=== PATIENT | male | born 1960 | race African-American/Black ===

== ENCOUNTER 2019-12-19 07:10 | Inpatient (IN) | payer MEDICARE ==
[2019-12-19 07:39] LABS: #Eosinphils 0.3 thou/uL (0.0-0.7); #Lymphocytes 1.2 thou/uL (1.20-3.40); #Monocytes 0.4 thou/uL (0.11-0.59); #Neutrophils 5.4 thou/uL (1.40-6.50); %Basophils 0.4 % (0.0-1.0); %Eosinophils 4.6 % (0.0-10.0); %Lymphocytes 16.3 % (21.0-51.0); %Monocytes 5.7 % (0.0-10.0); %Neutrophils 72.9 % (42.0-75.0); Hemoglobin 12.8 g/dL (14.0-18.0); Mean Corpuscular HGB CONC 34.6 g/dL (32.0-36.0); Mean Corpuscular Hemoglobin 31.2 pg (27.0-31.0); Mean Platelet Volume 7.2 fL (7.4-10.4); Platelet Count 231 thou/uL (130-400); RBC Distribution Width 13.2 % (11.5-14.5); Red Blood Cell (RBC) Count 4.12 mill/uL (4.70-6.10); White Blood Cell (WBC) Count 7.4 thou/uL (4.8-10.8)
[2019-12-19] MEDS ORDERED: Amlodipine 5 MG TAB ONE (07:55)
[2019-12-19 08:06] LABS: ALT (SGPT) 14 U/L (8-55); AST (SGOT) 17 U/L (5-34); Albumin 3.4 g/dL (3.5-5.0); Alkaline Phosphatase 126 U/L (40-110); Anion Gap 9 mmol/L (10-20); BUN (Urea Nitrogen) 21 mg/dL (8.4-25.7); Bilirubin, Total 0.8 mg/dL (0.2-1.2); CK (CPK) 376 U/L (30-200); Calc. Creatinine Clearance 0 mL/min (70-130); Calcium 8.9 mg/dL (7.8-10.44); Carbon Dioxide 32 mmol/L (22-29); Chloride 101 mmol/L (98-107); Estimated GFR-MDRD 65; Globulin 3.8 g/dL (2.4-3.5); Glucose 295 mg/dL (70-105); Potassium 3.8 mmol/L (3.5-5.1); Protein, Total 7.2 g/dL (6.0-8.3); Sodium 138 mmol/L (136-145)
--- NOTE | 2019-12-19 08:08 | RAD ---
CHEST 1 VIEW: Date: 12/19/2019 INDICATION: History of stroke symptoms and altered mental status. COMPARISON: None. FINDINGS: Lungs are clear. Heart size is mildly prominent. No pleural effusion or pneumothorax is evident. No a cute osseous abnormality is evident. IMPRESSION: Mild cardiomegaly without evidence of cardiac decompensation. POS: [facility]
[2019-12-19] MEDS ORDERED: Losartan 25 MG TAB PO SCH (08:30)
[2019-12-19] MEDS ORDERED: Hydrochlorothiazide 25 MG TAB PO SCH (08:30)
--- NOTE | 2019-12-19 09:52 | PDOC.FPRHP ---
- History of Present Illness Chief Complaint: Slurred Speech / RLE Weakness History of Present Illness: Mr. Baird is a 59 y/o male with a PMH significant for "2 or 3 strokes", the most recent of which occurred in 2016, as well as HTN, Hx of Seizure, HLD and DM2 who presents to the ED with his from an outside hospital for evaluation of a possible CVA. Patient had pronounced dysarthria during the evaluation, and much of the HPI and ROS was provided by his , who was present upon evaluation. Per the patient's , the patient has residual symptoms of dysarthria and generalized weakness following his most recent CVA in 2015. However, since 12/16/2019, the patient's has noticed an increase in these symptoms, to now include pronounced right-sided LE weakness and left-sided facial drooping. The patient and his presented to an outside hospital earlier in the day, where the patient received a CT Brain that was read as "negative", and were subsequently "told to come to [facility] for an MRI". The patient denied any recent seizures, toxic exposures, LOC, traumatic falls or blows to the head, changes in vision, CP, SOB or loss of bowel or bladder function. ED Course: While in the ED, the patient received a CXR that demonstrated mild cardiomegaly , and was found to have Hypertensive Urgency, with a 198/100. He was subsequently administered ASA 81 mg, HCTZ 25 mg, Amlodipine 10 mg and Losartan 100 mg. - Allergies/Adverse Reactions Allergies Allergy/AdvReac Type Severity Reaction Status Date / Time No Known Drug Allergies Allergy Verified 12/19/19 08:16 - Home Medications Comments: The patient was not able to full articulate his current medications, and the patient's did not have a list of his medications readily available. As such. the patient's home medication list was obtained by the ED nursing staff, who called the patient's previously established pharmacy. - History PMHx: Multiple CVAs, DM2, Hypothyroidism, HTN, HLD PSHx: None FHx: Father (CVA, HTN) Social: Denied x3 Code: Full - Review of Systems General: denies: fever/chills, weight/appetite/sleep changes, night sweats Eyes: denies: eye pain, vision changes ENT: denies: nasal congestion, rhinorrhea Respiratory: reports: cough, congestion. denies: shortness of breath Cardiovascular: denies: chest pain, palpitation, edema Gastrointestinal: denies: nausea, vomiting, diarrhea, constipation, abdominal pain Genitourinary: denies: incontinence, dysuria, polyuria Skin: denies: rashes, lesions, jaundice Musculoskeletal: reports: pain (Neck). denies: tenderness, stiffness Neurological: reports: weakness. denies: numbness, syncope, seizure Psychological: denies: anxiety, depression - Vital signs BP: 198/100 HR: 73 RR: 16 Pox: 98% (Room Air) Wt: 82kg - Physical Exam Constitutional: NAD, awake, alert and oriented, well developed HEENT: normocephalic and atraumatic, PERRLA, EOMI, conjunctiva clear, no scleral icterus, grossly normal vision, grossly normal hearing, normal nasal mucosa, MMM, oropharynx clear, other (Peripheral Vision Intact) Neck: supple, FROM, trachea midline, no LAD, no bruits Chest: no-tender to palpation, no lesions Heart: RRR, normal S1/S2, no murmurs/rubs/gallops, pulses present, no edema Lungs: CTAB, no respiratory distress, good air movement, no rales/rhonchi, no wheezing, no retractions Abdomen: soft, non-tender, bowel sounds present, no masses/distention, no hernias Musculoskeletal: normal structure Neurological: other ((+) Dysdiadokinesia, (+) Finger to Nose, (-) Heel to Perla) Skin: no rash/lesions, no jaundice Heme/Lymphatic: no unusual bruising or bleeding, no purpura, no petechia, no LAD Psychiatric: normal mood and affect FMR H&P: Results - Labs Result Diagrams: 12/19/19 07:31 12/19/19 07:31 Lab results: WBC 7.4 thou/uL (4.8-10.8) 12/19/19 07:31 Hgb 12.8 g/dL (14.0-18.0) L 12/19/19 07:31 Hct 37.1 % (42.0-52.0) L 12/19/19 07:31 MCV 90.0 fL (78.0-98.0) 12/19/19 07:31 Plt Count 231 thou/uL (130-400) 12/19/19 07:31 Neutrophils % 72.9 % (42.0-75.0) 12/19/19 07:31 Sodium 138 mmol/L (136-145) 12/19/19 07:31 Potassium 3.8 mmol/L (3.5-5.1) 12/19/19 07:31 Chloride 101 mmol/L (98-107) 12/19/19 07:31 Carbon Dioxide 32 mmol/L (22-29) H 12/19/19 07:31 BUN 21 mg/dL (8.4-25.7) 12/19/19 07:31 Creatinine 1.36 mg/dL (0.7-1.3) H 12/19/19 07:31 Glucose 295 mg/dL (70-105) H 12/19/19 07:31 Calcium 8.9 mg/dL (7.8-10.44) 12/19/19 07:31 Total Bilirubin 0.8 mg/dL (0.2-1.2) 12/19/19 07:31 AST 17 U/L (5-34) 12/19/19 07:31 ALT 14 U/L (8-55) 12/19/19 07:31 Alkaline Phosphatase 126 U/L (40-110) H 12/19/19 07:31 Creatine Kinase 376 U/L (30-200) H 12/19/19 07:31 Serum Total Protein 7.2 g/dL (6.0-8.3) 12/19/19 07:31 Albumin 3.4 g/dL (3.5-5.0) L 12/19/19 07:31 FMR H&P: A/P - Problem List (1) TIA (transient ischemic attack) Current Visit: Yes Status: Acute Code(s): G45.9 - TRANSIENT CEREBRAL ISCHEMIC ATTACK, UNSPECIFIED (2) Hypertensive urgency Current Visit: Yes Status: Acute Code(s): I16.0 - HYPERTENSIVE URGENCY (3) HLD (hyperlipidemia) Current Visit: Yes Status: Acute Code(s): E78.5 - HYPERLIPIDEMIA, UNSPECIFIED (4) DM2 (diabetes mellitus, type 2) Current Visit: Yes Status: Acute (5) History of CVA (cerebrovascular accident) Current Visit: Yes Status: Acute Code(s): Z86.73 - PRSNL HX OF TIA (TIA), AND CEREB INFRC W/O RESID DEFICITS (6) Hypothyroidism Current Visit: Yes Status: Acute Code(s): E03.9 - HYPOTHYROIDISM, UNSPECIFIED - Plan Patient is a 59 y/o male with a PMH significant for multiple CVAs who presents to the ED from an outside hospital following 4 days of worsening dysarthria, right-sided LE weakness and left-sided facial drooping. 1. TIA vs. CVA -Patient's constellation of symptoms and PMH are suspicious for TIA vs. CVA -Patient's CC and account from do not appear consistent with physical exam - only positive symptoms included Dysarthria, Dysdiadokinesia and [id number] , although patient is still greatly altered from baseline (per patient's ) -NIHSS: 6 -EKG: RBBB and LAFB -Trops: Negative -CT Brain: NAF - Will need to request records from outside hospital -MRI (Brain): Pending -TTE: Pending -CTA (Head/Neck): Pending -Q4H Neuro Checks -Neuro Consult: Pending 2. Hypertensive Urgency -BP: 198/100 in ED -Patient is outside window for Permissive Hypertension -Will restart home medication regimen -Hydralazine 10 mg PO Q4H > 160/100 mmHg 3. DM2 -Blood Glucose: 295 in ED -Will restart home medication regimen -Moderate SSI -Accuchecks Q12H -Hypoglycemia Protocol 4. Hypothyroidism -TSH: Pending -Will restart home medication regimen 5. HLD -Patient's states that patient is compliant with home medication regimen -Will order Fasting Lipid Panel for further risk stratification 6. Hx of Seizures -No recent seizure activity in several years, per the patient's -Will restart home Keppra regimen -Continue to monitor PCP: CC Code: Full Diet: NPO Activity: Ambulate w/ Assist VTE PPx: SCDs and Lovenox Dispo: Patient will be admitted to the Stroke Floor for further evaluation of worsening dysarthria, right-sided LE weakness and left-sided facial drooping - likely consistent with TIA vs. CVA. Control Hypertensive Urgency and manage chronic medical conditions. Will request records from outside hospital and await lab and imaging results as per above. Neurology consulted, recs appreciated. Expected LOS < 48H. FMR H&P: Upper Level - Plan Date/Time: 12/19/19 0927 I, Joon Larsen MD, have evaluated this patient and agree with findings/plan as outlined by social media intern resident. Pertinent changes/additions are listed here. Almas Baird is a 59 year old M with a PMH of CVA, Seizure Disorder, HTn, DM2 who presented to the ED with a 2-3 day history of slurred speech and difficulty word finding. History provided mostly by . States he has some residual dysarthria and generalized weakness from prior CVAs but for the last few days he has had increased right side LE and facial weakness. Decided to go to outside ED and they were sent to [facility] for work up. CT brain was negative at outside facility. Pt denies recent seizures, drug use, LOC, trauma , vision changes, chest pain, palpitations, dyspnea, fever, chills. In the ED, he received aspirin and was given his home HCTZ, amlodipine and losartan as he is outside window of permissive hypertension. VSS in ED with stable and wnl with exception of hypertension, BP 198/100. Labs were significant for Cr 1.36, otherwise CBC and CMP were relatively unremarkable. Exam was positive for + dysdiadokinesia and finger to nose, otherwise unremarkable. Admitting patient to inpatient stroke for CVA work up. Ordered MRI and Echo and CTA head and neck. Continue aspirin and statin. Continue home antihypertensive regimen with PRNs available. Checking FLP. Please see social media intern note above for full H&P, which I have reviewed and agree with. Addendum - Attending - Attending Attestation Date/Time: 12/19/19 1017 I personally evaluated the patient and discussed the management with Dr. Oneal. I agree with the History, Examination, Assessment and Plan documented above with any addition or exceptions noted below. The patient was transferred from [place] for stroke workup. He began having a facial droop and worsening slurred speech several days ago. CT in [place] reportedly showed chronic changes. He is hypertensive urgency but is outside window for permissive hypertension. Will restart home meds. Order MRI, ECHO, CTA head/neck. Consult neurology. control blood sugars.
[2019-12-19] MEDS ORDERED: Aspirin Chewable 81 MG TAB ONE (10:15)
[2019-12-19] MEDS ORDERED: Iopamidol-370 76% 500 ML 1 ML ONE (13:50)
[2019-12-19] MEDS ORDERED: hydrALAZINE 10 MG TAB PO PRN (15:19)
[2019-12-19] MEDS ORDERED: Dextrose 5% in Water 1,000 ML IV PRN ×2 (15:26→21:04)
[2019-12-19] MEDS ORDERED: Dextrose 50% Abboject 50 ML SYRINGE SLOW IVP PRN ×2 (15:26→21:04)
[2019-12-19] MEDS ORDERED: Ondansetron ODT 4 MG TAB PO PRN (21:04)
[2019-12-19] MEDS ORDERED: HumaLOG 300 UNITS/3 ML VIAL SC PRN (21:04)
[2019-12-19] MEDS ORDERED: Acetaminophen 325 MG TAB PO PRN (21:04)
[2019-12-19] MEDS: HumaLOG 300 UNITS/3 ML VIAL SC SCH (21:30)
[2019-12-19] MEDS: Atorvastatin Calcium 40 MG TAB PO SCH (21:30)
[2019-12-19] MEDS ORDERED: HumaLOG 300 UNITS/3 ML VIAL ONE (21:33)
[2019-12-19] MEDS ORDERED: hydrALAZINE 20 MG/ML VIAL ONE (23:29)
[2019-12-19] MEDS ORDERED: Famotidine 20 MG TAB ONE (23:31)
[2019-12-19] MEDS: hydrALAZINE 20 MG/ML VIAL SLOW IVP PRN (23:38)
[2019-12-19] MEDS: levETIRAcetam 500 MG TAB PO SCH (23:39)
[2019-12-20] MEDS: Atorvastatin Calcium 40 MG TAB PO SCH ×3 (00:05→21:08)
[2019-12-20] MEDS: HumaLOG 300 UNITS/3 ML VIAL SC SCH ×5 (00:05→23:36)
[2019-12-20] MEDS: Famotidine 20 MG TAB PO SCH ×3 (00:05→21:09)
[2019-12-20 02:10] VITALS: BMI 23.8
[2019-12-20 05:29] LABS: Cardiac Risk 3.5 (Less than 4.5)
--- NOTE | 2019-12-20 05:55 | PDOC.FM ---
- Subjective Subjective: Patient was resting comfortably in bed with his present at the time of evaluation. He was non-verbal this AM, but did not appear to be in any acute distress. His upper extremity tremulousness was markedly decreased since his previous evaluation. Per the Resident Night Team, a Code Rios was called when the patient was found on the floor of his bathroom. There was no evidence of severe trauma or loss of bowel/bladder function. No post-ictal state was noted. Stat Trops, EKG, Lactate , Keppra and Prolactin levels were ordered. Results are currently pending. - Objective Vital Signs & Weight: Vital Signs (12 hours) Temp Pulse Resp BP BP Pulse Ox 12/20/19 03:24 98.5 F 74 16 130/77 98 12/19/19 23:38 71 194/97 H Weight Weight 79.515 kg Result Diagrams: 12/20/19 06:37 12/20/19 06:37 Phys Exam - Physical Examination Constitutional: NAD HEENT: moist MMs, sclera anicteric, oral pharynx no lesions Neck: supple, full ROM Respiratory: no wheezing, no rales, no rhonchi, clear to auscultation bilateral Cardiovascular: RRR, no significant murmur, no rub Gastrointestinal: soft, non-tender, no distention, positive bowel sounds Musculoskeletal: no edema, pulses present Neurological: moves all 4 limbs Markedly improved Finger to Nose, (+) Dysdiadokinesia, Strength 5/5 x4 Deviation from normal: Patient was non-verbal Skin: no rash Dx/Plan (1) TIA (transient ischemic attack) Code(s): G45.9 - TRANSIENT CEREBRAL ISCHEMIC ATTACK, UNSPECIFIED Status: Acute (2) Hypertensive urgency Code(s): I16.0 - HYPERTENSIVE URGENCY Status: Acute (3) HLD (hyperlipidemia) Code(s): E78.5 - HYPERLIPIDEMIA, UNSPECIFIED Status: Acute (4) DM2 (diabetes mellitus, type 2) Status: Acute (5) History of CVA (cerebrovascular accident) Code(s): Z86.73 - PRSNL HX OF TIA (TIA), AND CEREB INFRC W/O RESID DEFICITS Status: Acute (6) Hypothyroidism Code(s): E03.9 - HYPOTHYROIDISM, UNSPECIFIED Status: Acute - Plan Plan: Patient is a 59 y/o male with a PMH significant for multiple CVAs who presents to the ED from an outside hospital following 4 days of worsening dysarthria, right-sided LE weakness and left-sided facial drooping. 1. TIA vs. CVA -Patient's constellation of symptoms and PMH are suspicious for TIA vs. CVA -Patient's CC and account from do not appear consistent with physical exam - only positive symptoms included Dysarthria, Dysdiadokinesia and [id number] , although patient is still greatly altered from baseline (per patient's ) -NIHSS: 6 -EKG: RBBB and LAFB -Repeat EKG: Pending -Trops: Negative -Repeat Trops: Pending -CT Brain: NAF - Will need to request records from outside hospital -MRI (Brain): Pending -TTE: Pending -CTA (Head/Neck): Pending -Q4H Neuro Checks -Neuro Consult: Pending -Additional Keppra, Prolactin and Lactate Levels: Pending 2. Hypertensive Urgency -BP: 198/100 in ED > 130/77 on 12/20/2019 -Patient is outside window for Permissive Hypertension -Will restart home medication regimen -Hydralazine 10 mg PO Q4H > 160/100 mmHg 3. DM2 -Blood Glucose: 295 in ED > 369 on 12/19/2019 -Will restart home medication regimen -Moderate SSI -Accuchecks Q6H -Hypoglycemia Protocol 4. Hypothyroidism -TSH: 2.25 -Will restart home medication regimen 5. HLD -Patient's states that patient is compliant with home medication regimen -FLP: Cholesterol(141) / Tri(120) / HDL(40) / LDL(77) 6. Hx of Seizures -No recent seizure activity in several years, per the patient's -Will restart home Keppra regimen - confirmed receipt of Keppra on 12/19/2019 -Continue to monitor PCP: CC Code: Full Diet: NPO Activity: Strict Bedrest w/ Alarm VTE PPx: SCDs and Lovenox Dispo: Patient is currently stable on the Stroke Floor for further evaluation of worsening dysarthria, right-sided LE weakness and left-sided facial drooping - likely consistent with TIA vs. CVA. Control Hypertensive Urgency and manage chronic medical conditions. Will confirm records from outside hospital with Resident Day Team and await lab and imaging results as per above. Recent Code Green is concerning and will require additional investigation. Neurology consulted, recs appreciated. Expected LOS < 48H. Addendum - Attending - Attending Attestation Date/Time: 12/20/19 7061 I personally evaluated the patient and discussed the management with Dr. Oneal. I agree with the History, Examination, Assessment and Plan documented above with any addition or exceptions noted below. The patient is less verbal today though he does attempt to answer my questions. He had a code green overnight with a fall in the bathroom after staring off into space then legs giving out. Labs were drawn. MRI and CTA is pending today. Echo is pending. Neurology consult has been placed. Awaiting speech eval.
[2019-12-20] MEDS ORDERED: Levothyroxine 150 MCG TAB PO SCH (06:00)
[2019-12-20] MEDS ORDERED: levETIRAcetam In NaCl (Iso-Os) 1,000 MG in Premix Bag 1 BAG IVPB SCH (06:45)
--- NOTE | 2019-12-20 08:22 | CT ---
PRELIMINARY REPORT/[facility]/EMERGENCY AFTER HOURS PROCEDURE: Receipt of this report by the clinical staff was confirmed with Venus Rocha RN by Lisette Bass on Dec 20, 2019 01:09:00 INVENTORY AUDIT CLERK. Addendum electronically signed by Lisette Bass on December 20, 2019 1:12:44 AM INVENTORY AUDIT CLERK EXAM: CT Head Without Intravenous Contrast. CLINICAL HISTORY: ER 3... [id number] presents to the ER via EMS as a transfer for stroke like sysmptoms that started 2 days ag o and have been worsening. EMS reports worsening abnormal gait and slurred speech more in the the pas t 2 days. TECHNIQUE: Axial computed tomography images of the head/brain without intravenous contrast. COMPARISON: None provided. FINDINGS: BRAIN: No acute intraparenchymal hemorrhage. No mass lesion. Hypodensity within the left basal gangl ia at the internal capsule/thalamus compatible with subacute or old lacunar infarct. There are scatt ered subcortical and periventricular white matter hypodensities compatible with chronic small vessel ischemic changes. No midline shift or extra-axial collection. There are atherosclerotic calcifications of the intracranial vertebral and carotid arteries. VENTRICLES: No hydrocephalus. Symmetric enlargement of the ventricles and sulci compatible with age- related cerebral atrophy. ORBITS: The orbits are unremarkable. SINUSES AND MASTOIDS: The paranasal sinuses and mastoid air cells are clear. SOFT TISSUES: No significant facial or scalp soft tissue swelling evident. No radiopaque foreign body is seen. BONES: No acute skull fracture. IMPRESSION: 1. Hypodensity within the left basal ganglia compatible with subacute or old lacunar infarct. Consi vonnie further evaluation with MRI as clinically warranted. 2. No intracranial hemorrhage. 3. Age-related cerebral atrophy and chronic microvascular ischemic changes. ELECTRONICALLY SIGNED BY: Mark Bob M.D. Dec 20, 2019 1:02:41 AM INVENTORY AUDIT CLERK This report is intended for review by the ordering physician only, in accordance of law. If you recei ve this report in error, please call [facility] at [phone]. FINAL REPORT BRAIN CT WITHOUT IV CONTRAST: EMERGENCY AFTER HOURS STUDY TIME: 12:18 AM. DATE: 12/20/2019. COMPARISON: Brain MRI 02/10/2017. FINDINGS: Old stable left basal ganglia and right cerebellar hemisphere inferior infarct changes. No mass or b leed or other acute process. This report is in agreement with the preliminary report. POS: [facility]
[2019-12-20 08:42] LABS: #Basophils 0.1 thou/uL (0.0-0.2); #Eosinphils 0.3 thou/uL (0.0-0.7); #Lymphocytes 3.2 thou/uL (1.20-3.40); #Monocytes 0.5 thou/uL (0.11-0.59); #Neutrophils 6.7 thou/uL (1.40-6.50); %Basophils 0.6 % (0.0-1.0); %Eosinophils 2.5 % (0.0-10.0); %Lymphocytes 29.7 % (21.0-51.0); %Monocytes 4.7 % (0.0-10.0); %Neutrophils 62.4 % (42.0-75.0); Hemoglobin 13.8 g/dL (14.0-18.0); Mean Corpuscular HGB CONC 33.8 g/dL (32.0-36.0); Mean Corpuscular Hemoglobin 30.6 pg (27.0-31.0); Mean Corpuscular Volume 90.6 fL (78.0-98.0); Mean Platelet Volume 7.5 fL (7.4-10.4); Platelet Count 294 thou/uL (130-400); RBC Distribution Width 13.3 % (11.5-14.5); White Blood Cell (WBC) Count 10.7 thou/uL (4.8-10.8)
[2019-12-20 08:53] LABS: Anion Gap 14 mmol/L (10-20); BUN (Urea Nitrogen) 23 mg/dL (8.4-25.7); Calc. Creatinine Clearance 60 mL/min (70-130); Calcium 9.5 mg/dL (7.8-10.44); Carbon Dioxide 23 mmol/L (22-29); Chloride 102 mmol/L (98-107); Estimated GFR-MDRD 58; Glucose 229 mg/dL (70-105); Potassium 3.3 mmol/L (3.5-5.1); Sodium 136 mmol/L (136-145)
[2019-12-20] MEDS ORDERED: Clopidogrel Bisulfate 75 MG TAB ONE (09:00)
[2019-12-20 09:12] LABS: INR-International Normal Ratio 1.1; PTT 28.2 SEC (22.9-36.1); Prothrombin Time 14.5 SEC (12.0-14.7)
[2019-12-20 09:13] LABS: Troponin I 0.012 ng/mL (< 0.028)
[2019-12-20] MEDS: Enoxaparin Sodium 40 MG/0.4 ML SYRINGE SC SCH (10:57)
--- NOTE | 2019-12-20 12:21 | MRI ---
MRI BRAIN NONCONTRAST: DATE: 12/20/2019 HISTORY: 59-year-old male with acute stroke. COMPARISON: 02/10/2017. FINDINGS: There is a new finding of an approximately 1.1 x 0.7 cm focus of T2 hyperintensity with strongly rest ricted diffusion at the far lateral edge of the right cerebral peduncle, in the region of corticospinal and cortical nuclear fibers. Focal small signal patchy abnormality of right upper elton new since prior study. There are very small old lacunar infarctions involving medial aspect of left thalamus, and at junctio n between anteromedial thalamus and posterior limb of left internal capsule. There is chronic atrophy and signal abnormality involving the left cerebral peduncle and left upper p ons, representing wallerian degeneration. Periventricular chronic ischemic white matter changes extending into rivera radiata and centrum semio hao valley. No obstructive hydrocephalus, acute intra-axial hemorrhage, mass effect, midline shift, or extra-axia l fluid collection. Wedge-shaped small old lacunar infarction at inferior lower portion of right cerebellar hemisphere. New finding of extensive signal abnormality throughout bilateral mastoid air cells. IMPRESSION: 1) acute right midbrain brainstem infarction involving the right cerebral peduncle, involving cortica l spinal tract. 2) a few old left thalamic lacunar infarctions. 3) wallerian degeneration of the left brainstem related to the left thalamic old lacunar infarctions. 4) small old infarction of right upper el[place], which occurred sometime after the previous MRI. 5) small old infarction of right PICA (posterior-inferior cerebellar artery) territory. 6) mild to moderate chronic ischemic white matter changes. 7) new finding of severe bilateral mastoid effusions.
[2019-12-20] MEDS: levETIRAcetam 500 MG TAB PO SCH (13:27)
[2019-12-20] MEDS: Lactated Ringer's 1,000 ML IV SCH ×2 (14:25→22:46)
[2019-12-20] MEDS: HumaLOG 300 UNITS/3 ML VIAL SC PRN (14:32)
[2019-12-20] MEDS: Amlodipine 10 MG TAB PO SCH (16:35)
[2019-12-20] MEDS: Aspirin 325 mg Enteric Coated Tablet PO SCH (16:36)
[2019-12-20] MEDS: Losartan 25 MG TAB PO SCH (16:36)
[2019-12-20] MEDS: Hydrochlorothiazide 25 MG TAB PO SCH (16:36)
[2019-12-20] MEDS: Clopidogrel Bisulfate 75 MG TAB PO SCH (16:36)
--- NOTE | 2019-12-20 17:56 | CT ---
CT ANGIO OF HEAD AND NECK PERFORMED WITH INTRAVENOUS CONTRAST ENHANCEMENT WITH 3D RECONSTRUCTIONS: 12/20/19 HISTORY: Patient with stroke symptoms. COMPARISON: MRI and CT studies done today. The lung apices are clear. Thyroid gland and focal cord regions appear unremarkable. No significant j ugular chain adenopathy. Parapharyngeal spaces are clear. The angiographic portion of this study yielded a satisfactory examination. 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 There is moderate stenosis of the or igin of the right vertebral with the left vertebral being dominant and making the entire contribution to the basilar artery with the right vertebral terminating in a PICA branch. The right common carotid, internal and external carotid arteries are all normal in appearance. No grace dence of any significant stenosis by NASCET criteria. On the left side, there is some calcified plaque at the origin of the left internal carotid artery bu t no evidence of any significant stenosis by NASCET criteria. The external and common carotid arterie s are normal. CT ANGIO OF BRAIN PERFORMED WITH INTRAVENOUS CONTRAST ENHANCEMENT WITH 3D RECONSTRUCTIONS: The anterior and middle cerebral arteries and their branches are patent. There is no evidence of any intraluminal thrombus. The basilar artery is small. Posterior cerebral arteries are intact. IMPRESSION: 1. No evidence of hemodynamically significant stenosis of either internal carotid artery. 2. Moderate stenosis of the origin of the right vertebral artery. The right vertebral artery end s in a PICA branch. The left vertebral artery forms the basilar artery which is small. 3. Unremarkable appearing anterior and middle cerebral artery circulations. POS: [facility]
[2019-12-20] MEDS ORDERED: Dextrose 50 % In Water 50 ML SYRINGE ONE (23:13)
[2019-12-21] MEDS: Levothyroxine Sodium 112 MCG TAB PO SCH (05:02)
[2019-12-21] MEDS: Levothyroxine Sodium 25 MCG TAB PO SCH (05:03)
[2019-12-21] MEDS ORDERED: Levothyroxine Sodium 125 MCG TAB PO SCH (06:00)
--- NOTE | 2019-12-21 06:16 | PDOC.FM ---
- Subjective Subjective: Patient was resting comfortably at the time of evaluation and denied being in any pain or a history of any acute overnight events. - Objective Vital Signs & Weight: Vital Signs (12 hours) Temp Pulse Resp BP Pulse Ox 12/21/19 03:46 98.2 F 67 14 168/81 H 97 12/20/19 23:13 98.5 F 89 16 174/86 H 99 12/20/19 20:00 97 12/20/19 19:25 97.4 F L 102 H 16 163/77 H 97 Weight Admit Weight 79.515 kg Weight 79.515 kg I&O: 12/19/19 12/20/19 12/21/19 06:59 06:59 06:59 Output Total 50 Balance -50 Result Diagrams: 12/20/19 06:37 12/21/19 10:44 Phys Exam - Physical Examination Constitutional: NAD HEENT: moist MMs, sclera anicteric, oral pharynx no lesions Neck: supple, full ROM Respiratory: no wheezing, no rales, no rhonchi, clear to auscultation bilateral Cardiovascular: RRR, no significant murmur, no rub Gastrointestinal: soft, non-tender, no distention, positive bowel sounds Musculoskeletal: no edema, pulses present Left-sided facial droop, improving aphasia/dysarthria Psychiatric: normal affect Skin: no rash Dx/Plan (1) TIA (transient ischemic attack) Code(s): G45.9 - TRANSIENT CEREBRAL ISCHEMIC ATTACK, UNSPECIFIED Status: Acute (2) Hypertensive urgency Code(s): I16.0 - HYPERTENSIVE URGENCY Status: Acute (3) HLD (hyperlipidemia) Code(s): E78.5 - HYPERLIPIDEMIA, UNSPECIFIED Status: Acute (4) DM2 (diabetes mellitus, type 2) Status: Acute (5) History of CVA (cerebrovascular accident) Code(s): Z86.73 - PRSNL HX OF TIA (TIA), AND CEREB INFRC W/O RESID DEFICITS Status: Acute (6) Hypothyroidism Code(s): E03.9 - HYPOTHYROIDISM, UNSPECIFIED Status: Acute - Plan Plan: Patient is a 59 y/o male with a PMH significant for multiple CVAs who presents to the ED from an outside hospital following 4 days of worsening dysarthria, right-sided LE weakness and left-sided facial drooping. 1. 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 Acute Left Basal Ganglia Infarct -MRI (Brain): Right Cerebral Peduncle Infarct involving the Corticospinal Tract -TTE: Diastolic Dysfunction (EF: 60-65%) -CTA (Head/Neck): Moderate stenosis of Right Vertebral Artery -Q4H Neuro Checks -Neuro Consult: Pending -Keppra: 40.3 (WNL) 2. Hypertensive Urgency -BP: 198/100 in ED > 168/81 on 12/20/2019 -Patient is outside window for Permissive Hypertension -Currently holding home antihypertension medication regimen pending Modified Barium Swallow -Hydralazine 10 mg PO Q4H > 160/100 mmHg 3. DM2 -POC Glucose: 170 on 12/20 -Moderate SSI -Accuchecks Q6H -Hypoglycemia Protocol 4. Hypothyroidism -TSH: 2.25 -Currently holding home medication regimen pending Modified Barium Swallow 5. HLD -Patient's states that patient is compliant with home medication regimen -FLP: Cholesterol(141) / Tri(120) / HDL(40) / LDL(77) -Currently holding home medication regimen pending Modified Barium Swallow 6. Hx of Seizures -No recent seizure activity in several years, per the patient's -Restarted home Keppra regimen via IV pending Modified Barium Swallow -Recent Code Green is concerning - patient is on Bed Rest w/ Bed Alarm in place PCP: CC Code: Full Diet: NPO pending Modified Barium Swallow Activity: Strict Bed Rest w/ Alarm VTE PPx: SCDs and Lovenox Dispo: Patient is currently stable on the Stroke Floor for further evaluation of worsening dysarthria, right-sided LE weakness and left-sided facial drooping - confirmed CVA on MRI Brain. Control Hypertensive Urgency and manage chronic medical conditions. Modified Barium Swallow planned for this AM. Neurology consulted, recs appreciated. Expected LOS < 48H. Addendum - Attending - Attending Attestation Date/Time: 12/21/19 1323 I personally evaluated the patient and discussed the management with Dr. Oneal. I agree with the History, Examination, Assessment and Plan documented above with any addition or exceptions noted below. Patient withy hypoglycemia overnight which improved with amp D50. Pt is still npo awaiting modified barium swallow today. Will add D5 to fluids. MRI showed acute cva. Awaiting neurology evaluation.
[2019-12-21 07:04] LABS: Anion Gap 11 mmol/L (10-20); BUN (Urea Nitrogen) 35 mg/dL (8.4-25.7); Calc. Creatinine Clearance 29 mL/min (70-130); Calcium 8.5 mg/dL (7.8-10.44); Carbon Dioxide 29 mmol/L (22-29); Chloride 103 mmol/L (98-107); Estimated GFR-MDRD 25; Glucose 211 mg/dL (70-105); Potassium 3.9 mmol/L (3.5-5.1); Sodium 139 mmol/L (136-145)
[2019-12-21] MEDS ORDERED: Lactated Ringer's 1,000 ML IV SCH ×2 (09:03→14:15)
[2019-12-21] MEDS ORDERED: Lactated Ringer's 500 ML IV SCH ×2 (09:30→14:00)
[2019-12-21] MEDS: HumaLOG 300 UNITS/3 ML VIAL SC SCH ×3 (09:51→17:40)
[2019-12-21] MEDS: Amlodipine 10 MG TAB PO SCH (09:51)
[2019-12-21] MEDS: Aspirin 325 mg Enteric Coated Tablet PO SCH (09:51)
[2019-12-21] MEDS: Hydrochlorothiazide 25 MG TAB PO SCH (09:52)
[2019-12-21] MEDS: Clopidogrel Bisulfate 75 MG TAB PO SCH (09:52)
[2019-12-21] MEDS: Losartan 25 MG TAB PO SCH (09:52)
[2019-12-21] MEDS ORDERED: Dextrose 5 % And 0.9 % NaCl 1,000 ML IV SCH (10:30)
[2019-12-21] MEDS: Enoxaparin Sodium 40 MG/0.4 ML SYRINGE SC SCH (10:33)
[2019-12-21] MEDS: Famotidine 20 MG TAB PO SCH (10:34)
[2019-12-21] MEDS: Lactated Ringer's 1,000 ML IV SCH (11:04)
--- NOTE | 2019-12-21 11:41 | RAD ---
Exam: Modified barium swallow with speech therapist HISTORY: Dysphasia following cerebral infarction Fluoroscopy time 1.6 minutes Dose 5.37 mGy FINDINGS: Patient was given numerous consistencies and evaluated in the lateral position. There is considerable premature spillage into the vallecula and the into the piriform sinuses. Penetration with rebecca aspiration seen on thin liquids. Improvement in swallowing with chin tuck. IMPRESSION: Abnormal scan with penetration and aspiration. Please see speech therapy report for additional findings and recommendations.
[2019-12-21] MEDS ORDERED: Dextrose 5 % And 0.9 % NaCl 500 ML IV SCH ×2 (12:15→13:45)
--- NOTE | 2019-12-21 12:16 | PRG ---
DATE OF SERVICE: 12/21/2019 Mr. Baird was readmitted with acute worsening of dysarthria. His MRI of the brain revealed a right midbrain infarct. His echocardiogram shows normal ejection fraction 55% to 60%. His primary complaint is only that he is unable to speak. He denies any lateralized weakness or numbness. He is not having any headache, nausea, vomiting, vertigo, or double vision. He was taking aspirin, Lipitor, and Plavix prior to admission. I would suggest after his swallow studies completed that we switch him from aspirin and Plavix to Aggrenox 1 twice a day. Continue Lipitor. He has had a recent stroke workup. Therefore, I do not think any further testing is necessary. Job ID: [id number]
[2019-12-21] MEDS: HumaLOG 300 UNITS/3 ML VIAL SC PRN (15:05)
[2019-12-21 15:56] LABS: Bilirubin Negative (Negative); Blood, Urine 1+ (Negative); Clarity Clear (Clear); Glucose, Urine (Dipstick) 300 mg/dL (Negative); Leukocyte Negative Leu/uL (Negative); Nitrite Negative (Negative); Protein, Urine (Dipstick) 70 mg/dL (Neg-Trace); Squamous Epithelial 0-3 HPF (0-3); Urobilinogen Normal mg/dL (Less than 2)
[2019-12-21 16:04] LABS: Creatinine, Urine 156.47 mg/dL (63-166)
[2019-12-21 16:09] LABS: Bacteria/HPF 1+ HPF (None Seen); RBC/HPF 0-3 HPF (0-3); Sperm/HPF Rare HPF (None Seen)
[2019-12-21 16:10] LABS: Urine Culture Reflex Yes Yes
[2019-12-21] MEDS ORDERED: Labetalol HCl 100 MG/20 ML VIAL SLOW IVP PRN (17:19)
--- NOTE | 2019-12-21 19:21 | CON ---
DATE OF CONSULTATION: 12/21/2019 SERVICE: Nephrology. REASON FOR CONSULTATION: Acute kidney injury. CONSULTING PHYSICIAN: Dr. Padilla Oneal. HISTORY OF PRESENT ILLNESS: A 59-year-old male with known history of CKD, hypertension, diabetes mellitus, as well as hyperlipidemia and previous CVAs with residual dysarthria, who was brought in to the hospital for evaluation of worsening dysarthria associated with right-sided lower extremity weakness as well as left-sided facial droop. This was concerning for stroke, and the patient had CT scan of the brain, which was unremarkable, and subsequently, had CT angio of the head and neck for evaluation of stroke. The patient prior to hospitalization was on losartan as well as hydrochlorothiazide and this was continued post contrast. The patient however continued to get maintenance fluid. Since yesterday, December 21, about 36 hours after contrast study, the patient was noted to have progressively increasing creatinine to a peak of 3.56 necessitating Nephrology consult. Of note, the patient had an episode of fall and seizure on December 20, during which he had mild drop in blood pressure. The patient also was found to have dysphagia, hence was on n.p.o. The patient's facial droop and extremity weakness has improved, but dysarthria and dysphagia persist. The patient is actually having problem with swallowing his saliva. PAST MEDICAL HISTORY: 1. Prior multiple CVAs. 2. Type-2 diabetes mellitus. 3. Hypertension. 4. Hyperlipidemia. 5. Hypothyroidism. 6. CKD. PAST SURGICAL HISTORY: None. FAMILY HISTORY: Significant for CVA and hypertension in father. SOCIAL HISTORY: Lives with family. Denied alcohol, smoking, or recreational drug use. ALLERGIES: NO KNOWN DRUG ALLERGIES REPORTED. PRIOR TO HOSPITAL MEDICATIONS: 1. Amlodipine 10 mg p.o. daily. 2. Aspirin 81 mg p.o. daily. 3. Lipitor 40 mg p.o. daily at bedtime. 4. Brimonidine tartrate 1 drop to each eye daily. 5. Plavix 75 mg p.o. daily. 6. Hydrochlorothiazide 25 mg p.o. daily. 7. Tresiba daily. 8. Humalog with meals. 9. Irbesartan 300 mg p.o. daily. 10. Latanoprost 1 drop to each eye daily. 11. Keppra 500 mg p.o. b.i.d. 12. Levothyroxine 137 mcg p.o. daily. 13. Prednisolone eye drop 1 drop to each eye daily. 14. Travoprost 1 drop to each eye daily. CURRENT HOSPITAL MEDICATIONS: 1. Lactated Ringer's at 150 mL/hr. 2. Keppra 500 mg IV b.i.d. 3. Amlodipine 10 mg p.o. daily. 4. Aspirin 325 mg p.o. daily. 5. Lipitor 40 mg p.o. daily at bedtime. 6. Lovenox 40 mg daily. 7. Pepcid 20 mg p.o. b.i.d. 8. Hydrochlorothiazide 25 mg p.o. daily. 9. Levothyroxine 137 mcg p.o. daily. 10. Cozaar 100 mg p.o. daily. 11. Hydralazine 10 mg slow IV q.4h p.r.n. for elevated blood pressure. 12. Labetalol 10 mg slow IV push q.4 hours p.r.n. for elevated blood pressure. 13. Humalog 14 units subcutaneously with meals. 14. Sliding scale insulin. REVIEW OF SYSTEMS: Could not be performed due to the patient's condition. The patient however denied headache, shortness of breath, chest pain, or difficulty urination. PHYSICAL EXAMINATION: VITAL SIGNS: Temperature 98.5, pulse 84, respiratory rate 16, SpO2 of 94% on room air, blood pressure is 170/82. GENERAL: Middle-age male, in no obvious distress. Afebrile. Anicteric. Acyanotic. HEENT: Normocephalic, atraumatic. Oral mucosa is moist. NECK: Supple with no JVD. CARDIOVASCULAR: Regular rhythm and rate with normal heart sounds 1 and 2. RESPIRATORY: Fair air entry bilaterally with some transmitted breath sounds, but no obvious crackle or rhonchi or use of accessory muscles. GI: Full, soft, nontender, nondistended with normal bowel sounds. EXTREMITIES: Grossly normal looking, atraumatic with no edema or erythema. SKIN: No rash. Rather dry. BUSINESS CONTINUITY COORDINATOR: Conscious and alert. Oriented to person at least. The patient has significant dysarthria, which limited conversation. Face is grossly symmetrical. The patient moves all extremities to command. PSYCHIATRIC: Emotionally labile. DIAGNOSTIC DATA: CBC on December 20 showed WBC count of 10.7, hemoglobin of 13.8, MCV of 90.6, platelets of 294. BMP earlier today showed sodium 139, potassium 3.9, chloride 103, CO2 is 29, BUN 35, creatinine 3.12, glucose 211, calcium 8.5. However, creatinine done about 6 hours later was 3.56. ASSESSMENT: 1. Acute kidney injury: Etiology is unclear, but seems to be related to contrast-induced nephropathy and/or hemodynamic factors related to volume depletion from poor oral intake in a patient taking losartan and hydrochlorothiazide. The patient is clinically dry pointing to volume depletion. 2. Chronic kidney disease stage 3: Due to hypertensive nephrosclerosis and possible diabetic nephropathy. 3. Hypertension. 4. Type-2 diabetes mellitus. 5. Acute cerebrovascular accident with severe dysphagia and dysarthria. PLAN: 1. We will get urinalysis as well as urine electrolytes and urine protein. 2. Agree with IV fluid therapy. We will however discontinue LR since the patient has STU to avoid hyperkalemia. We will start sodium bicarbonate in half-normal saline and run it at increased rate as the patient seems clinically dry. 3. Agree with n.p.o. for now. 4. We will recheck renal function test in the morning. Further treatment to follow depending on hospital course. 5. Avoid nephrotoxic agents. Losartan and hydrochlorothiazide have been discontinued. 6. We will dose all medications renally. Many thanks for involving us in the care of this patient. We will follow along with you. Job ID: [id number]
[2019-12-21] MEDS: Atorvastatin Calcium 40 MG TAB PO SCH (21:05)
[2019-12-21] MEDS: Aggrenox 200-25mg CAP PO SCH (21:05)
[2019-12-21] MEDS: Sodium Bicarbonate 50 MEQ in Sodium Chloride 0.45% 1,000 ML IV SCH (22:43)
[2019-12-22] MEDS: HumaLOG 300 UNITS/3 ML VIAL SC SCH ×3 (02:04→13:48)
[2019-12-22] MEDS: Levothyroxine Sodium 112 MCG TAB PO SCH (02:05)
[2019-12-22] MEDS: Levothyroxine Sodium 25 MCG TAB PO SCH (02:05)
[2019-12-22] MEDS: Sodium Bicarbonate 50 MEQ in Sodium Chloride 0.45% 1,000 ML IV SCH ×2 (04:19→11:00)
--- NOTE | 2019-12-22 05:31 | PDOC.FM ---
- Subjective Subjective: Patient was resting comfortably in his hospital bed at the time of evaluation with his present. They denied any acute overnight events. The current plan of care was discussed, to include the family's desire to proceed with a Surgery consult for placement of a PEG tube. - Objective Vital Signs & Weight: Vital Signs (12 hours) Pulse Ox 12/21/19 20:00 95 Weight Admit Weight 79.515 kg Weight 79.515 kg I&O: 12/20/19 12/21/19 12/22/19 06:59 06:59 06:59 Output Total 50 Balance -50 Result Diagrams: 12/22/19 05:42 12/22/19 05:42 Phys Exam - Physical Examination Constitutional: NAD HEENT: moist MMs, sclera anicteric, oral pharynx no lesions Neck: supple, full ROM Respiratory: no wheezing, no rales, no rhonchi, clear to auscultation bilateral Cardiovascular: RRR, no significant murmur, no rub Gastrointestinal: soft, non-tender, no distention Musculoskeletal: no edema, pulses present Neurological: moves all 4 limbs Slightly weaker otologist on left hand than right Psychiatric: normal affect Skin: no rash Dx/Plan (1) TIA (transient ischemic attack) Code(s): G45.9 - TRANSIENT CEREBRAL ISCHEMIC ATTACK, UNSPECIFIED Status: Acute (2) Hypertensive urgency Code(s): I16.0 - HYPERTENSIVE URGENCY Status: Acute (3) HLD (hyperlipidemia) Code(s): E78.5 - HYPERLIPIDEMIA, UNSPECIFIED Status: Acute (4) DM2 (diabetes mellitus, type 2) Status: Acute (5) History of CVA (cerebrovascular accident) Code(s): Z86.73 - PRSNL HX OF TIA (TIA), AND CEREB INFRC W/O RESID DEFICITS Status: Acute (6) Hypothyroidism Code(s): E03.9 - HYPOTHYROIDISM, UNSPECIFIED Status: Acute - Plan Plan: Patient is a 59 y/o male with a PMH significant for multiple CVAs who presents to the ED from an outside hospital following 4 days of worsening dysarthria, right-sided LE weakness and left-sided facial drooping. 1. 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 Acute Left Basal Ganglia Infarct -MRI (Brain): Right Cerebral Peduncle Infarct involving the Corticospinal Tract -TTE: Diastolic Dysfunction (EF: 60-65%) -CTA (Head/Neck): Moderate stenosis of Right Vertebral Artery -Q4H Neuro Checks -Neuro Consult: Medication regimen is optimized, no further intervention required -Keppra: 40.3 (WNL) 2. Hypertensive Urgency -BP: 198/100 in ED > 170/82 on 12/21/2019 -Patient is outside window for Permissive Hypertension -Currently holding home antihypertension medication regimen due to failed Modified Barium Swallow -Hydralazine 10 mg IV Q4H > 160/100 mmHg -Labetalol 10 mg IV > 160/100 mmHg 3. STU -Cr: 1.36 on admission - 3.56 on 12/21 -Nephrology: Consulted - likely combination of dehydration and Contrast Induced Nephropathy -DC'd LR - currently on NaHCO3 @ 200 ml/hr -Consider Renal US if Cr continues to rise 3. DM2 -POC Glucose: 154 on 12/21 -Moderate SSI -Accuchecks Q4H -Hypoglycemia Protocol -Consider initiation of Basal Insulin due to NPO Status 4. Hypothyroidism -TSH: 2.25 -Currently holding home medication regimen due to failed Modified Barium Swallow -Consider initiation of IV Levothyroxine due to NPO status 5. HLD -Patient's states that patient is compliant with home medication regimen -FLP: Cholesterol(141) / Tri(120) / HDL(40) / LDL(77) -Currently holding home medication regimen due to failed Modified Barium Swallow 6. Hx of Seizures -No recent seizure activity in several years, per the patient's -Restarted home Keppra regimen via IV due to failed Modified Barium Swallow -Recent Code Green is concerning - patient is on Bed Rest w/ Bed Alarm in place PCP: CC Code: Full Diet: NPO Activity: Strict Bed Rest w/ Alarm VTE PPx: SCDs and Lovenox Dispo: Patient is currently stable on the Stroke Floor for further evaluation of worsening dysarthria, right-sided LE weakness and left-sided facial drooping - confirmed CVA on MRI Brain. Control Hypertensive Urgency and manage chronic medical conditions. Nephrology consulted due to STU, recs appreciated. Family desires PEG Tube placement - will plan to consult Surgery this AM. Expected LOS > 48H. Addendum - Attending - Attending Attestation Date/Time: 12/22/19 5251 I personally evaluated the patient and discussed the management with Dr. Oneal. I agree with the History, Examination, Assessment and Plan documented above with any addition or exceptions noted below. Patient with dysarthria and dysphagia following CVA. Consulting GI for peg tube placement. Pt's creatinine continues to worsen, likely 2/2 contrast induced nephropathy. He remains on IV fluids. Appreciate nephro recs. Pt will need rehabilitation on discharge.
[2019-12-22 05:52] LABS: Hemoglobin 10.8 g/dL (14.0-18.0); Mean Corpuscular HGB CONC 33.6 g/dL (32.0-36.0); Mean Corpuscular Hemoglobin 30.3 pg (27.0-31.0); Mean Corpuscular Volume 90.2 fL (78.0-98.0); Mean Platelet Volume 7.6 fL (7.4-10.4); Platelet Count 198 thou/uL (130-400); RBC Distribution Width 13.1 % (11.5-14.5); Red Blood Cell (RBC) Count 3.57 mill/uL (4.70-6.10); White Blood Cell (WBC) Count 7.4 thou/uL (4.8-10.8)
[2019-12-22 06:10] LABS: Anion Gap 16 mmol/L (10-20); BUN (Urea Nitrogen) 55 mg/dL (8.4-25.7); Calc. Creatinine Clearance 18 mL/min (70-130); Calcium 7.8 mg/dL (7.8-10.44); Carbon Dioxide 23 mmol/L (22-29); Chloride 103 mmol/L (98-107); Estimated GFR-MDRD 14; Glucose 241 mg/dL (70-105); Potassium 4.2 mmol/L (3.5-5.1); Sodium 138 mmol/L (136-145)
[2019-12-22] MEDS: Enoxaparin Sodium 30 MG/0.3 ML SYRINGE SC SCH (09:07)
[2019-12-22] MEDS: hydrALAZINE 20 MG/ML VIAL SLOW IVP PRN ×2 (09:08→22:09)
[2019-12-22] MEDS: Aggrenox 200-25mg CAP PO SCH (09:11)
[2019-12-22] MEDS: Amlodipine 10 MG TAB PO SCH (09:11)
[2019-12-22] MEDS: Famotidine 20 MG TAB PO SCH (09:12)
[2019-12-22] MEDS: Insulin Glargine 5 UNITS in Pre-Filled Syringe 1 EACH SC SCH (11:04)
[2019-12-22] MEDS: Levothyroxine 100 MCG SDV SLOW IVP SCH (11:06)
--- NOTE | 2019-12-22 11:52 | PRG ---
DATE OF SERVICE: SERVICE: Nephrology. SUBJECTIVE: A 59-year-old male with prior multiple CVAs and CKD amongst others, admitted due to acute onset of neurological deficits suggestive of acute CVA. The patient who had a contrast study on presentation was noted to have elevated creatinine necessitating Nephrology consult. The patient is still n.p.o. due to severe dysphagia and dysarthria. No new problem. Denied vomiting, abdominal pain, chest pain, cough, fever. Urine output is minimal. OBJECTIVE: VITAL SIGNS: Temperature 99, pulse 85, respiratory rate 16, SpO2 of 92% on room air, blood pressure 189/86. GENERAL: Middle-aged male, in no obvious distress. Afebrile. Anicteric. Acyanotic. HEENT: Normocephalic, atraumatic. Oral mucosa is moist. CARDIOVASCULAR: Regular rhythm and rate with normal heart sounds 1 and 2. RESPIRATORY: Fair air entry bilaterally with no crackle or rhonchi or use of accessory muscles. GI: Full, soft, nontender, nondistended with normal bowel sounds. EXTREMITIES: Grossly normal looking atraumatic with no edema or erythema. LOADER TECHNICIAN: Conscious, alert, oriented x3. The patient has severe dysarthria as well as dysphagia even to swallow his saliva, hence drooling saliva. Moves all extremities. DIAGNOSTIC DATA: CBC showed WBC count of 7.4, hemoglobin of 10.8, MCV of 90.2, platelets of 198. BMP showed sodium of 138, potassium 4.2, chloride 103, CO2 of 23, BUN 55, creatinine 5.09, glucose 241, calcium 7.1. Note that creatinine was 3.56 yesterday. Urinalysis performed yesterday showed yellow clear urine with pH of 5.0, specific gravity of 1.047, urine protein of 70, glucose 300, trace ketone, 1+ blood. Negative nitrite, bilirubin, urobilinogen, and leukocyte esterase. WBC showed 0 to 3 rbc and 4 to 6 wbc with 1+ bacteria. Urine electrolytes showed total protein of 65. Urine creatinine of 156 and urine sodium of 32 and random urine urea nitrogen 299. ASSESSMENT: 1. Acute renal failure: This most likely due to acute tubular necrosis from contrast-induced nephropathy in a patient on losartan and hydrochlorothiazide. Losartan and hydrochlorothiazide have been discontinued. The patient is still oliguric despite aggressive IV fluid therapy. 2. Chronic kidney disease, stage 3. 3. Volume depletion: Corrected with IV fluid therapy. 4. Acute cerebrovascular accident with severe dysphagia and dysarthria. 5. Hypertension: Control is suboptimal. PLAN: 1. We will insert a Patterson catheter to measure urine output correctly. 2. We will decrease IV fluid therapy to 100 mL/h as the patient is oliguric at this time. This will be to avoid fluid overload. 3. Given severe dysphagia, current enteral nutrition should be pursued. If the PEG to be placed and patient started on tube feeding, IV fluid should be discontinued. 4. We will monitor renal function and electrolytes closely. 5. Continue current antihypertensives and adjust dose to get adequate BP control. 6. Further treatment to follow depending on hospital course. Job ID: [id number]
--- NOTE | 2019-12-22 14:28 | CON ---
DATE OF CONSULTATION: 12/22/2019 CHIEF COMPLAINT: Trouble swallowing after stroke. HISTORY OF PRESENT ILLNESS: Mr. Baird is a 59-year-old man, who was admitted on 12/19/2019 with a stroke with left-sided weakness and dysarthria and dysphagia. His hospital course has been complicated by suspected acute tubular necrosis from contrast-induced injury. He has been oliguric. He has been on Lovenox at a reduced dose for the stroke. He had a swallowing study today, which he failed, and GI was consulted for gastrostomy tube placement. The patient is awake and alert. He answers my questions appropriately, but is having dysarthria. He is awake and alert. PAST MEDICAL HISTORY: 1. Hypertension. 2. Hypothyroidism. 3. Hyperlipidemia. 4. Diabetes mellitus, type 2. 5. Stroke. PAST SURGICAL HISTORY: Negative. He has had no prior colonoscopy. FAMILY HISTORY: Negative for GI malignancy. SOCIAL HISTORY: No alcohol, tobacco, or drugs. ALLERGIES: NO KNOWN DRUG ALLERGIES. MEDICATIONS: Currently include: 1. Enoxaparin 30 mg daily, last dose this morning. 2. Aggrenox. 3. Famotidine. 4. Atorvastatin. 5. Amlodipine. 6. Insulin. 7. Levetiracetam. 8. Levothyroxine. Prior to admission: 1. He was on clopidogrel and aspirin. 2. He was on eyedrops for glaucoma. REVIEW OF SYSTEMS: Negative x10 systems reviewed except as stated in history of present illness. PHYSICAL EXAMINATION: VITAL SIGNS: Temperature 98.4, pulse 84, and blood pressure 131/65. GENERAL: He is in no acute distress. He is awake and alert. He is appropriately responsive. HEENT: His eyes have no scleral icterus. Oropharynx is clear without lesions. He is using Yankauer for suctioning his oral secretions. He has no cervical or supraclavicular lymphadenopathy LUNGS: Clear to auscultation bilaterally. HEART: Regular rate and rhythm without murmur. ABDOMEN: Soft, nontender, and nondistended. Bowel sounds are present. EXTREMITIES: No lower extremity edema. LABORATORY DATA: White blood cell count 7.4, hemoglobin 10.8, and platelets 198. INR 1.1. BUN 55 and creatinine 5.05. IMPRESSION: 1. Stroke with left-sided weakness and dysarthria and dysphagia. He failed modified barium swallow with high-risk aspiration, and after discussion of the risks and benefits of percutaneous endoscopic gastrostomy tube placement, the patient and his family wished to proceed. 2. Stroke. 3. Hypertension. 4. Diabetes. 5. Hyperlipidemia. 6. Acute renal failure with possible acute tubular necrosis secondary to iodine contrast. 7. Currently on anticoagulation with enoxaparin at reduced dose 30 mg daily. He is also now on Aggrenox and was on clopidogrel and aspirin prior to admission. We will hold the enoxaparin tomorrow morning prior to percutaneous endoscopic gastrostomy placement. RECOMMENDATIONS: 1. EGD with percutaneous endoscopic gastrostomy tube placement tomorrow. 2. Hold enoxaparin tomorrow and give preprocedure antibiotics. 3. Risks of the procedure including bleeding, infection, bowel perforation were discussed. Job ID: [id number]
[2019-12-22] MEDS: HumaLOG 300 UNITS/3 ML VIAL SC PRN (18:13)
[2019-12-22] MEDS ORDERED: Acetaminophen 650 MG Suppository PR PRN (19:48)
[2019-12-23] MEDS: Aggrenox 200-25mg CAP PO SCH ×3 (01:56→21:16)
[2019-12-23] MEDS: Atorvastatin Calcium 40 MG TAB PO SCH ×2 (01:56→21:16)
--- NOTE | 2019-12-23 05:06 | PDOC.FM ---
- Subjective Subjective: Patient was sleeping comfortably in his hospital bed with his present during the evaluation. Per nursing staff, there were no acute overnight events. - Objective Vital Signs & Weight: Vital Signs (12 hours) Temp Pulse Resp BP Pulse Ox 12/23/19 03:14 99.5 F 94 20 154/74 H 92 L 12/22/19 23:10 98.6 F 86 20 136/62 93 L 12/22/19 22:09 71 12/22/19 20:40 96 12/22/19 20:00 98.9 F 71 16 185/86 H 90 L Weight Admit Weight 79.515 kg Weight 79.515 kg I&O: 12/21/19 12/22/19 12/23/19 06:59 06:59 06:59 Intake Total 685 Output Total 50 250 Balance -50 435 Result Diagrams: 12/23/19 04:46 12/23/19 04:46 Phys Exam - Physical Examination Constitutional: NAD Patient was sleeping throughout the exam - arousable HEENT: oral pharynx no lesions Neck: supple Respiratory: no wheezing, no rales, no rhonchi, clear to auscultation bilateral Cardiovascular: RRR, no significant murmur, no rub Gastrointestinal: soft, non-tender, no distention Musculoskeletal: pulses present reports trace edema in hands - appears unremarkable Deviation from normal: Sleeping Skin: no rash, normal turgor Dx/Plan (1) Hypertensive urgency Code(s): I16.0 - HYPERTENSIVE URGENCY Status: Resolved (2) HLD (hyperlipidemia) Code(s): E78.5 - HYPERLIPIDEMIA, UNSPECIFIED Status: Chronic (3) DM2 (diabetes mellitus, type 2) Status: Chronic (4) History of CVA (cerebrovascular accident) Code(s): Z86.73 - PRSNL HX OF TIA (TIA), AND CEREB INFRC W/O RESID DEFICITS Status: Chronic (5) Hypothyroidism Code(s): E03.9 - HYPOTHYROIDISM, UNSPECIFIED Status: Chronic (6) CVA (cerebral vascular accident) Code(s): I63.9 - CEREBRAL INFARCTION, UNSPECIFIED Status: Acute (7) Acute renal failure Status: Acute - Plan Plan: Patient is a 59 y/o male with a PMH significant for multiple CVAs who presents to the ED from an outside hospital following 4 days of worsening dysarthria, right-sided LE weakness and left-sided facial drooping. 1. 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 Acute Left Basal Ganglia Infarct -MRI (Brain): Right Cerebral Peduncle Infarct involving the Corticospinal Tract -TTE: Diastolic Dysfunction (EF: 60-65%) -CTA (Head/Neck): Moderate stenosis of Right Vertebral Artery -Q4H Neuro Checks -Neuro Consult: Medication regimen is optimized, no further intervention required -Keppra: 40.3 (WNL) -Currently holding Aggrenox and statin due to severe dysphagia 2. Hypertensive Urgency, resolved -BP: 198/100 in ED > 154/74 on 12/23 -Patient is outside window for Permissive Hypertension -Currently holding home antihypertension medication regimen due to failed Modified Barium Swallow -Hydralazine 10 mg IV Q4H > 160/100 mmHg -Labetalol 10 mg IV > 160/100 mmHg -Reengaged with Nursing staff to ensure better BP control during daily checks 3. Acute Renal Failure -Cr: 1.36 on admission > 3.56 on 12/21 > 5.09 on 12/22 > 6.99 on 12/23 -Nephrology: Consulted - likely 2/2 combination of dehydration and Contrast Induced Nephropathy -DC'd LR - currently on NaHCO3 @ 100 ml/hr per -Renal US: Pending 3. DM2 -POC Glucose: Elevated in the 250s throughout 12/22 w/ spike to 331 -Started on Lantus 5U daily on 12/22 - increased to 20U daily -Moderate SSI DC'd - currently on Aggressive Sliding Scale -Accuchecks Q4H -Hypoglycemia Protocol -Consider initiation of Basal Insulin due to NPO Status 4. Hypothyroidism -TSH: 2.25 -Held holding home medication regimen due to failed Modified Barium Swallow -IV Levothyroxine due to NPO status - dose adjusted per Pharmacy recs 5. HLD -Patient's states that patient is compliant with home medication regimen -FLP: Cholesterol(141) / Tri(120) / HDL(40) / LDL(77) -Currently holding home medication regimen due to failed Modified Barium Swallow 6. Hx of Seizures -No recent seizure activity in several years, per the patient's -Restarted home Keppra regimen via IV due to failed Modified Barium Swallow -Recent Code Green is concerning - patient is on Bed Rest w/ Bed Alarm in place PCP: CC Code: Full Diet: NPO Activity: Strict Bed Rest w/ Alarm VTE PPx: SCDs and Lovenox Dispo: Patient is admitted to the Stroke Floor for ongoing evaluation of CVA and Acute Renal Failure. Nephrology currently following - recs appreciated. GI to place PEG tube later this AM - will consult Dietary to initiate nutrition. Plan for PT/OT consult to evaluate for removal of Strict Bed Rest - will order waffle mattress if unable to ambulate soon. Expected LOS > 48H. Addendum - Attending - Attending Attestation Date/Time: 12/23/19 2942 I personally evaluated the patient and discussed the management with Dr. Oneal. I agree with the History, Examination, Assessment and Plan documented above with any addition or exceptions noted below. The patient is resting this morning. Will have peg tube placement. His renal failure continues to worsen but electrolytes are stable. This is thought to be contrast induced nephropathy. continue IV fluids. Will start diet and be able to transition to po bp meds after peg tube in place. Nephro is following renal failure. Continue therapy services for stroke.
[2019-12-23 05:10] LABS: Hemoglobin 10.8 g/dL (14.0-18.0); Mean Corpuscular Hemoglobin 30.5 pg (27.0-31.0); Mean Corpuscular Volume 89.6 fL (78.0-98.0); Mean Platelet Volume 8.1 fL (7.4-10.4); Platelet Count 196 thou/uL (130-400); RBC Distribution Width 13.2 % (11.5-14.5); Red Blood Cell (RBC) Count 3.54 mill/uL (4.70-6.10); White Blood Cell (WBC) Count 8.3 thou/uL (4.8-10.8)
[2019-12-23] MEDS: Sodium Bicarbonate 50 MEQ in Sodium Chloride 0.45% 1,000 ML IV SCH (05:13)
[2019-12-23 05:30] LABS: Anion Gap 24 mmol/L (10-20); BUN (Urea Nitrogen) 80 mg/dL (8.4-25.7); Calc. Creatinine Clearance 13 mL/min (70-130); Calcium 7.8 mg/dL (7.8-10.44); Carbon Dioxide 18 mmol/L (22-29); Chloride 100 mmol/L (98-107); Estimated GFR-MDRD 10; Glucose 330 mg/dL (70-105); Potassium 4.2 mmol/L (3.5-5.1); Sodium 138 mmol/L (136-145)
[2019-12-23] MEDS ORDERED: Levothyroxine Sodium 200 MCG VIAL IVP SCH (06:00)
[2019-12-23] MEDS: HumaLOG 300 UNITS/3 ML VIAL SC PRN ×2 (06:30→17:30)
[2019-12-23] MEDS ORDERED: Promethazine HCl 25 MG/ML VIAL SLOW IVP PRN (10:05)
[2019-12-23] MEDS ORDERED: Ondansetron HCl/PF 4 MG/2 ML Vial IVP PRN (10:05)
[2019-12-23] MEDS ORDERED: PACU-Morphine 4MG/ML VIAL SLOW IVP PRN (10:05)
[2019-12-23] MEDS ORDERED: Promethazine HCl 25 MG/ML VIAL IM PRN (10:05)
--- NOTE | 2019-12-23 10:10 | PRG ---
DATE OF SERVICE: 12/23/2019 SERVICE: Nephrology. SUBJECTIVE: A 59-year-old male admitted due to acute CVA. Nephrology is seeing the patient for acute kidney injury. The patient is still with severe dysphagia and dysarthria. There is no history of vomiting or diarrhea. The patient is for PEG tube placement later today. OBJECTIVE: VITAL SIGNS: Temperature 97.8, pulse 78, respiratory rate 20, SpO2 of 96% on room air, and blood pressure is 159/74. GENERAL: Middle-age male, in no obvious distress. Afebrile. Anicteric. Acyanotic. HEENT: Normocephalic and atraumatic. Oral mucosa is moist. NECK: Supple with no JVD. CARDIOVASCULAR: Regular rhythm and rate with normal heart sounds 1 and 2. RESPIRATORY: Good air entry bilaterally with no crackle or rhonchi or use of accessory muscles. GASTROINTESTINAL: Full, soft, nontender, nondistended with normal bowel sounds. UROGENITAL: Patterson catheter is in place, draining minimal urine. EXTREMITIES: Grossly normal looking, atraumatic with no obvious edema or erythema except on left hand, which is attributed to continues BP measurement. CENTRAL NERVOUS SYSTEM: Conscious and alert and oriented. Conversation is grossly limited due to severe dysarthria and dysphonia. The patient also has mild left lower facial weakness. Moves all extremities. DIAGNOSTIC DATA: CBC showed WBC count of 8.3, hemoglobin of 10.8, MCV of 89.6, and platelet of 196. BMP showed sodium 138, potassium 4.2, chloride 100, CO2 of 18, BUN 80, creatinine 6.99, glucose 330, and calcium 7.8. CPK is 251. ASSESSMENT: 1. Acute renal failure: Oliguric. This is most likely acute tubular necrosis from contrast-induced nephropathy. The patient on presentation had a CT angio while on nympz-cypqeqttvbx-thoncqgdadx system abby and hydrochlorothiazide. Creatinine continues to trend up. The patient, however, is more or less euvolemic, if not clinically dry. Oral intake is minimal due to severe dysphagia and the patient continues to get IV fluid therapy. 2. Metabolic acidosis: Due to acute kidney injury. 3. Hypertension: Control is acceptable. 4. Acute cerebrovascular accident with severe dysphagia, dysarthria, and dysphonia. DISCUSSION AND PLAN: At this time, the patient is more or less euvolemic with acceptable electrolytes. There is no indication for hemodialysis at this time. We will continue IV fluid maintenance until PEG tube is placed when we will discontinue this. We will start oral alkali therapy once PEG tube is placed. We will continue IV antihypertensives to get BP adequately controlled. We will, however, restart oral antihypertensives once we have PEG tube. We will continue to monitor urine output, volume status, and electrolytes. Care plan was discussed with the patient and spouse at the bedside and they verbalized understanding. Job ID: [id number]
[2019-12-23] MEDS: Famotidine 20 MG TAB PO SCH (10:13)
[2019-12-23] MEDS: Insulin Glargine 5 UNITS in Pre-Filled Syringe 1 EACH SC SCH (10:13)
[2019-12-23] MEDS: Amlodipine 10 MG TAB PO SCH (10:13)
[2019-12-23] MEDS ORDERED: Lidocaine 1% PF 5 ML VIAL ONE (10:32)
[2019-12-23] MEDS ORDERED: PROPOFOL 200 MG/20 ML VIAL ONE (10:32)
[2019-12-23] MEDS ORDERED: Insulin Glargine 20 UNITS in Pre-Filled Syringe 1 EACH SC SCH (11:00)
[2019-12-23] MEDS: Levothyroxine 100 MCG SDV SLOW IVP SCH (11:35)
--- NOTE | 2019-12-23 12:16 | OP ---
DATE OF PROCEDURE: 12/23/2019 PROCEDURE PERFORMED: Esophagogastroduodenoscopy with percutaneous endoscopic gastrostomy tube placement. PREOPERATIVE DIAGNOSIS: Oropharyngeal dysphagia secondary to stroke. DESCRIPTION OF PROCEDURE: Informed consent was obtained. The patient was sedated with total intravenous anesthesia. The bite block was placed and the endoscope was advanced easily to the second portion of the duodenum and retroflexion was performed in the stomach. The esophagus was normal. The stomach was normal including retroflexed views. The GE junction was normal. The pylorus and first and second portions of the duodenum were normal. The stomach was fully insufflated, and the appropriate site was transilluminated and palpated in the left upper quadrant. The skin was sterilized with chlorhexidine. The patient received 2 g of Ancef prior to the procedure. The skin was anesthetized with 5 mL of 1% lidocaine. A small skin incision was performed with a scalpel. The catheter was placed through the abdominal wall into the stomach under direct visualization in a single attempt. The wire was passed through the catheter and grasped with a snare and pulled out through the patient's mouth. The 20-Malaysian gastrostomy tube was then placed by the pull-through technique. The external bumper was placed at 3.5 cm. IMPRESSION: 1. Normal esophagogastroduodenoscopy. 2. Successful placement of 20-Malaysian gastrostomy tube. RECOMMENDATIONS: Start feeds in 8 hours. Job ID: [id number]
[2019-12-23] MEDS: Sodium Bicarbonate 75 MEQ in Sodium Chloride 0.45% 1,000 ML IV SCH (13:17)
--- NOTE | 2019-12-23 15:41 | ULT ---
Exam: Bilateral renal ultrasound complete: HISTORY: Acute renal failure COMPARISON: None FINDINGS: Right kidney: 12.0 x 4.6 x 5.5 cm Left kidney: 11.6 x 5.9 x 5.9 cm No renal hydronephrosis. No evidence for abnormal perinephric process. 1.2 x 1.6 cm left renal cyst. Unremarkable appearing bladder with Patterson catheter.. IMPRESSION: Unremarkable bilateral renal ultrasound. No hydronephrosis or perinephric process.
[2019-12-23] MEDS: hydrALAZINE 20 MG/ML VIAL SLOW IVP PRN (17:41)
--- NOTE | 2019-12-24 00:04 | EKG ---
Test Reason : CODE GREEN Blood Pressure : / mmHG Vent. Rate : 064 BPM Atrial Rate : 064 BPM P-R Int : 200 ms QRS Dur : 170 ms QT Int : 490 ms P-R-T Axes : 058 -65 027 degrees QTc Int : 505 ms Normal sinus rhythm Right bundle branch block Left anterior fascicular block Bifascicular block Minimal voltage criteria for LVH, may be normal variant Abnormal ECG When compared with ECG of 19-DEC-2019 08:03, (Unconfirmed) No significant change was found Confirmed by Shahida ZAVALA ([id number]) on 12/24/2019 12:04:23 AM Referred By: HI Confirmed By:Shahida ZAVALA
[2019-12-24] MEDS: Sodium Bicarbonate 75 MEQ in Sodium Chloride 0.45% 1,000 ML IV SCH ×2 (02:04→16:33)
[2019-12-24] MEDS: HumaLOG 300 UNITS/3 ML VIAL SC PRN ×4 (02:06→18:55)
[2019-12-24 02:52] LABS: Albumin 2.8 g/dL (3.5-5.0); Anion Gap 17 mmol/L (10-20); BUN (Urea Nitrogen) 76 mg/dL (8.4-25.7); BUN/Creatinine Ratio 15.08; Calc. Creatinine Clearance 18 mL/min (70-130); Calcium 8.2 mg/dL (7.8-10.44); Carbon Dioxide 23 mmol/L (22-29); Chloride 104 mmol/L (98-107); Estimated GFR-MDRD 14; Glucose 277 mg/dL (70-105); Phosphorus 4.6 mg/dL (2.3-4.7); Potassium 3.4 mmol/L (3.5-5.1); Sodium 141 mmol/L (136-145)
--- NOTE | 2019-12-24 05:03 | PDOC.FM ---
- Subjective Subjective: Patient was resting comfortably in bed at the time of evaluation - he was easily arousable and denied being in any acute pain or feeling febrile. - Objective Vital Signs & Weight: Vital Signs (12 hours) Temp Pulse Resp BP BP Pulse Ox 12/24/19 04:00 98.4 F 87 16 173/96 H 95 12/24/19 01:07 99.4 F 98 16 157/72 H 92 L 12/23/19 20:00 101.1 F H 94 16 156/74 H 94 L 12/23/19 18:36 155/73 H 12/23/19 17:41 76 196/88 H Weight Admit Weight 79.515 kg Weight 79.515 kg I&O: 12/22/19 12/23/19 12/24/19 06:59 06:59 06:59 Intake Total 1185 453 Output Total 550 750 Balance 635 -297 Result Diagrams: 12/23/19 04:46 12/24/19 02:14 Phys Exam - Physical Examination Constitutional: NAD HEENT: PERRLA, moist MMs, sclera anicteric, oral pharynx no lesions Left-sided facial droop Neck: supple, full ROM Respiratory: no wheezing, no rales, no rhonchi, clear to auscultation bilateral Cardiovascular: RRR, no significant murmur, no rub Gastrointestinal: soft, non-tender, no distention, positive bowel sounds Musculoskeletal: no edema, pulses present Decreased ROM and 3/5 strength in LUE and LLE Deviation from normal: Dysphagia Skin: no rash Dx/Plan (1) Hypertensive urgency Code(s): I16.0 - HYPERTENSIVE URGENCY Status: Resolved (2) HLD (hyperlipidemia) Code(s): E78.5 - HYPERLIPIDEMIA, UNSPECIFIED Status: Chronic (3) DM2 (diabetes mellitus, type 2) Status: Chronic (4) History of CVA (cerebrovascular accident) Code(s): Z86.73 - PRSNL HX OF TIA (TIA), AND CEREB INFRC W/O RESID DEFICITS Status: Chronic (5) Hypothyroidism Code(s): E03.9 - HYPOTHYROIDISM, UNSPECIFIED Status: Chronic (6) CVA (cerebral vascular accident) Code(s): I63.9 - CEREBRAL INFARCTION, UNSPECIFIED Status: Acute (7) Acute renal failure Status: Acute - Plan Plan: Patient is a 59 y/o male with a PMH significant for multiple CVAs who presents to the ED from an outside hospital following 4 days of worsening dysarthria, right-sided LE weakness and left-sided facial drooping. 1. 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 Acute Left Basal Ganglia Infarct -MRI (Brain): Right Cerebral Peduncle Infarct involving the Corticospinal Tract -TTE: Diastolic Dysfunction (EF: 60-65%) -CTA (Head/Neck): Moderate stenosis of Right Vertebral Artery -Q4H Neuro Checks -Neuro Consult: Medication regimen is optimized, no further intervention required -Keppra: 40.3 (WNL) -Currently holding Aggrenox and statin due to severe dysphagia 2. Hypertensive Urgency, resolved -BP: 198/100 in ED > 173/96 on 12/24 -Patient is outside window for Permissive Hypertension -Will restart Amlodipine regimen via PEG tube following Pharmacy approval - holding Losartan and HCTZ for now based on renal function -Hydralazine 10 mg IV Q4H > 160/100 mmHg -Labetalol 10 mg IV > 160/100 mmHg -Reengaged with Nursing staff to ensure better BP control during daily checks 3. Acute Renal Failure -Cr: 1.36 on admission > 6.99 on 12/23 > 5.04 on 12/24 -Nephrology: Consulted - likely 2/2 combination of dehydration and Contrast Induced Nephropathy -DC'd LR - currently on NaHCO3 @ 100 ml/hr per - will DC this AM -Renal US: WNL 3. DM2 -Started on Lantus 5U daily on 12/22 - increased to 20U daily -Humalog 9U INA TID -Aggressive Sliding Scale -Accuchecks Q4H -Hypoglycemia Protocol 4. Hypothyroidism -TSH: 2.25 -Held holding home medication regimen due to failed Modified Barium Swallow -IV Levothyroxine due to NPO status - dose adjusted per Pharmacy recs 5. HLD -Patient's states that patient is compliant with home medication regimen -FLP: Cholesterol(141) / Tri(120) / HDL(40) / LDL(77) -Currently holding home medication regimen due to failed Modified Barium Swallow 6. Hx of Seizures -No recent seizure activity in several years, per the patient's -Restarted home Keppra regimen via IV due to failed Modified Barium Swallow -Recent Code Green is concerning - patient is on Bed Rest w/ Bed Alarm in place - waffle mattress and frequent repositioning encouraged PCP: CC Code: Full Diet: NPO Activity: Strict Bed Rest w/ Alarm VTE PPx: SCDs and Lovenox Dispo: Patient is admitted to the Stroke Floor for ongoing evaluation of CVA and Acute Renal Failure. Nephrology currently following - recs appreciated. PEG tube placed successfully w/ Dietary managing nutrition. Await PT/OT recs and implement waffle mattress w/ frequent repositioning in the meantime. Expected LOS > 48H. Addendum - Attending - Attending Attestation Date/Time: 12/24/19 5672 I personally evaluated the patient and discussed the management with the team. I agree with the History, Examination, Assessment and Plan documented above with any addition or exceptions noted below. Improve BP control Monitor creatinine All meds/diet through PEG and d/c fluids if OK with nephro.
[2019-12-24] MEDS ORDERED: Insulin Glargine 20 UNITS in Pre-Filled Syringe 1 EACH SC SCH (09:00)
--- NOTE | 2019-12-24 09:35 | RAD ---
RADIOGRAPH CHEST 1 VIEW: DATE: 12/24/2019 TIME: 8:57 AM HISTORY: 59-year-old male with fever. Dr. Longo discussed the finding by telephone with nurse Stanislaw at 9:30 AM on 12/24/2019. It was larger than that the patient recently had PEG tube placement COMPARISON: 12/19/2019 FINDINGS: There is a new finding of free intraperitoneal air abutting the undersurface is of the bilateral fish diaphragms. Inspiration is shallower. There is a new small patchy airspace density at the right lung base. The rest of the visualized lung yung are clear. No pulmonary edema or pneumothorax. IMPRESSION: 1. Pneumoperitoneum. This can be explained by recent PEG tube placement. 2. New small patchy airspace density at right lung base, nonspecific: Atelectasis versus early pneumo enrrique versus aspiration.
[2019-12-24] MEDS ORDERED: Potassium Chloride 20 MEQ TAB PO SCH (10:15)
--- NOTE | 2019-12-24 10:39 | PRG ---
DATE OF SERVICE: 12/24/2019 SERVICE: Nephrology. SUBJECTIVE: A 59-year-old male, admitted with acute CVA associated with severe dysphagia and dysarthria, seen in followup for acute renal failure. Had PEG tube placement yesterday. Also had febrile episode yesterday. Feels a lot better this morning. Denied chest pain, shortness of breath, nausea, or vomiting. OBJECTIVE: VITAL SIGNS: Temperature 98.7, pulse 90, respiratory rate 20, SpO2 of 93% on room air, blood pressure is 179/92. GENERAL: Middle-age male, in no obvious distress. Afebrile. Anicteric. Acyanotic. HEENT: Normocephalic, atraumatic. Oral mucosa is moist. CARDIOVASCULAR: Regular rhythm and rate with normal heart sounds 1 and 2. RESPIRATORY: Fair air entry bilateral. Scattered crackles noted on anterior right lower lobe with no obvious rhonchi or use of accessory muscles. GI: Full, soft, nontender, nondistended with normal bowel sounds. PEG tube noted. EXTREMITIES: Grossly normal looking, atraumatic, with no edema or erythema. Distal pulses palpable. EGG SORTER: Conscious and alert and oriented x3. The patient is dysphasic and also dysarthric. Comprehends and nods to questions. Moves all extremities. DIAGNOSTIC DATA: Renal function panel showed sodium 141, potassium 3.4, chloride 104, CO2 of 23, BUN 76, creatinine 5.04, glucose 227, calcium 8.2, phosphorus 4.6, albumin 2.8. Chest x-ray showed new small patchy airspace density at the right lung base which could either be atelectasis or early pneumonia versus aspiration. ASSESSMENT: 1. Acute renal failure: Thought to be due to contrast induced nephropathy or acute tubular necrosis. The patient was on lisinopril and hydrochlorothiazide when he got contrast CT. Creatinine has peaked at 6.99 and is trending downward to 5.04 today. BUN also is trending downwards. 2. Hypokalemia. 3. Hypertension: Control is suboptimal. Antihypertensives were discontinued as the patient was n.p.o. due to dysphagia. 4. Acute cerebrovascular accident associated with severe dysphagia, dysarthria, and dysphasia. 5. Volume depletion: Improved with IV fluid therapy. PLAN: 1. We will replete serum potassium. 2. Agree with commencement of amlodipine to get adequate BP control. 3. We will also continue IV fluid therapy for at least 1 more day as the patient still looked clinically dry. 4. We will recheck renal function test in the morning as well as magnesium. Further treatment to follow depending on hospital course. Job ID: [id number]
[2019-12-24] MEDS: Enoxaparin Sodium 30 MG/0.3 ML SYRINGE SC SCH (11:32)
[2019-12-24] MEDS: HumaLOG 300 UNITS/3 ML VIAL SC SCH ×3 (11:34→17:22)
[2019-12-24] MEDS: Famotidine/PF 20 mg/2ml Vial SLOW IVP SCH (11:35)
[2019-12-24] MEDS: Clopidogrel Bisulfate 75 MG TAB PER TUBE SCH (11:36)
[2019-12-24] MEDS: Amlodipine 10 MG TAB PER TUBE SCH (11:37)
--- NOTE | 2019-12-24 13:59 | PRG ---
DATE OF SERVICE: 12/24/2019 SUBJECTIVE: Mr. Baird is awake and alert. He has no abdominal pain at his gastrostomy site. OBJECTIVE: His abdomen is soft, nontender, and nondistended. The PEG site appears healthy. His external bumper is at between 3 and 3.5 cm and is loose and was left in this position. IMPRESSION: Dysphagia secondary to stroke, status post percutaneous endoscopic gastrostomy tube placement. RECOMMENDATIONS: 1. He is tolerating PEG tube feeds well. 2. Clean the PEG site with soap and water daily. 3. I will sign off. Please call if GI can be of assistance. Job ID: [id number]
[2019-12-24] MEDS: hydrALAZINE 20 MG/ML VIAL SLOW IVP PRN (15:15)
[2019-12-24] MEDS: Levothyroxine 100 MCG SDV SLOW IVP SCH (15:15)
[2019-12-24 15:18] LABS: Bacteria/HPF None Seen HPF (None Seen); Bilirubin Negative (Negative); Blood, Urine 1+ (Negative); Clarity Clear (Clear); Glucose, Urine (Dipstick) 500 mg/dL (Negative); Leukocyte Negative Leu/uL (Negative); Nitrite Negative (Negative); Protein, Urine (Dipstick) 70 mg/dL (Neg-Trace); Squamous Epithelial 0-3 HPF (0-3); Urobilinogen Normal mg/dL (Less than 2); WBC/HPF 0-3 HPF (0-3)
[2019-12-24 15:20] LABS: Urine Culture Reflex No No
[2019-12-24] MEDS: Atorvastatin Calcium 40 MG TAB PER TUBE SCH (23:08)
[2019-12-25] MEDS: HumaLOG 300 UNITS/3 ML VIAL SC PRN ×3 (04:08→15:13)
[2019-12-25 05:07] LABS: Albumin 2.8 g/dL (3.5-5.0); Anion Gap 12 mmol/L (10-20); BUN (Urea Nitrogen) 35 mg/dL (8.4-25.7); BUN/Creatinine Ratio 15.63; Calc. Creatinine Clearance 41 mL/min (70-130); Calcium 8.2 mg/dL (7.8-10.44); Carbon Dioxide 27 mmol/L (22-29); Chloride 103 mmol/L (98-107); Estimated GFR-MDRD 37; Glucose 324 mg/dL (70-105); Phosphorus 2.8 mg/dL (2.3-4.7); Potassium 3.3 mmol/L (3.5-5.1); Sodium 139 mmol/L (136-145)
[2019-12-25] MEDS ORDERED: Potassium Chloride 20 MEQ TAB PO SCH (05:45)
--- NOTE | 2019-12-25 06:29 | PDOC.FM ---
- Subjective Subjective: Patient was resting comfortably in his bed with his present at the time of evaluation. He shook his head no and denied any acute overnight events, to include fever, CP or SOB. - Objective Vital Signs & Weight: Vital Signs (12 hours) Temp Pulse Resp BP Pulse Ox 12/25/19 04:00 99 F 89 18 174/94 H 93 L 12/24/19 23:56 99.1 F 100 20 175/93 H 93 L 12/24/19 19:00 98.8 F 95 22 H 170/85 H 92 L Weight Admit Weight 79.515 kg Weight 79.515 kg I&O: 12/23/19 12/24/19 12/25/19 06:59 06:59 06:59 Intake Total 1185 453 90 Output Total 264 160 6179 Balance 527 -068 -8794 Result Diagrams: 12/23/19 04:46 12/25/19 04:22 Phys Exam - Physical Examination Constitutional: NAD HEENT: PERRLA, moist MMs, sclera anicteric, oral pharynx no lesions Neck: supple, full ROM Respiratory: no wheezing, no rales, no rhonchi, clear to auscultation bilateral Cardiovascular: RRR, no significant murmur, no rub Gastrointestinal: soft, non-tender, no distention, positive bowel sounds Musculoskeletal: no edema, pulses present Left-sided facial droop, restricted ROM on left, 2/5 strength in LUE, LLE Skin: no rash Dx/Plan (1) Hypertensive urgency Code(s): I16.0 - HYPERTENSIVE URGENCY Status: Resolved (2) HLD (hyperlipidemia) Code(s): E78.5 - HYPERLIPIDEMIA, UNSPECIFIED Status: Chronic (3) DM2 (diabetes mellitus, type 2) Status: Chronic (4) History of CVA (cerebrovascular accident) Code(s): Z86.73 - PRSNL HX OF TIA (TIA), AND CEREB INFRC W/O RESID DEFICITS Status: Chronic (5) Hypothyroidism Code(s): E03.9 - HYPOTHYROIDISM, UNSPECIFIED Status: Chronic (6) CVA (cerebral vascular accident) Code(s): I63.9 - CEREBRAL INFARCTION, UNSPECIFIED Status: Acute (7) Acute renal failure Status: Acute - Plan Plan: Patient is a 59 y/o male with a PMH significant for multiple CVAs who presents to the ED from an outside hospital following 4 days of worsening dysarthria, right-sided LE weakness and left-sided facial drooping. 1. 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 Acute Left Basal Ganglia Infarct -MRI (Brain): Right Cerebral Peduncle Infarct involving the Corticospinal Tract -TTE: Diastolic Dysfunction (EF: 60-65%) -CTA (Head/Neck): Moderate stenosis of Right Vertebral Artery -Q4H Neuro Checks -Neuro Consult: Medication regimen is optimized, no further intervention required -Keppra: 40.3 (WNL) -Currently holding Aggrenox per Pharm recs 2. Hypertensive Urgency, resolved -Patient is outside window for Permissive Hypertension -Will restart Amlodipine regimen via PEG tube following Pharmacy approval - holding Losartan and HCTZ for now based on renal function -Hydralazine 10 mg IV Q4H > 160/100 mmHg -Labetalol 10 mg IV > 160/100 mmHg -Reengaged with Nursing staff to ensure better BP control during daily checks 3. Acute Renal Failure, improving -Cr: 1.36 on admission > 6.99 on 12/23 (Peak) > 2.24 on 12/25 -Nephrology: Consulted - likely 2/2 combination of dehydration and Contrast Induced Nephropathy -DC'd LR - currently on NaHCO3 @ 100 ml/hr per - will DC this AM -Renal US: WNL 3. DM2 -Started on Lantus 5U daily on 12/22 - increased to 30U daily -Humalog 9U INA TID -Aggressive Sliding Scale -Accuchecks Q4H -Hypoglycemia Protocol 4. Hypothyroidism -TSH: 2.25 -Held holding home medication regimen due to failed Modified Barium Swallow -IV Levothyroxine due to NPO status - dose adjusted per Pharmacy recs 5. HLD -Patient's states that patient is compliant with home medication regimen -FLP: Cholesterol(141) / Tri(120) / HDL(40) / LDL(77) -Currently holding home medication regimen due to failed Modified Barium Swallow 6. Hx of Seizures -No recent seizure activity in several years, per the patient's -Restarted home Keppra regimen via IV due to failed Modified Barium Swallow -Recent Code Green is concerning - patient is on Bed Rest w/ Bed Alarm in place - waffle mattress and frequent repositioning encouraged PCP: CC Code: Full Diet: NPO Activity: Strict Bed Rest w/ Alarm VTE PPx: SCDs and Lovenox Dispo: Patient is admitted to the Stroke Floor for ongoing evaluation of CVA and Acute Renal Failure. Nephrology currently following - recs appreciated. PEG tube placed successfully w/ Dietary managing nutrition. Await PT/OT recs and implement waffle mattress w/ frequent repositioning in the meantime. Beginning DC planning w/ patient's family and Case Management. Expected LOS > 48H. Addendum - Attending - Attending Attestation Date/Time: 12/25/19 1213 I personally evaluated the patient and discussed the management with Dr. Oneal. I agree with the History, Examination, Assessment and Plan documented above with any addition or exceptions noted below. Continue PT. Work on placement. STU improving with post ATN diuresis. Monitor fluids, continue bicarb. Adjust meds to control BP.
[2019-12-25] MEDS: HumaLOG 300 UNITS/3 ML VIAL SC SCH ×3 (09:18→17:19)
[2019-12-25] MEDS: Insulin Glargine 30 UNITS in Pre-Filled Syringe 1 EACH SC SCH (09:19)
[2019-12-25] MEDS: Amlodipine 10 MG TAB PER TUBE SCH (09:22)
[2019-12-25] MEDS: Aspirin 81 mg Enteric Coated Tablet PO SCH (09:22)
[2019-12-25] MEDS: Enoxaparin Sodium 30 MG/0.3 ML SYRINGE SC SCH (09:22)
[2019-12-25] MEDS: Clopidogrel Bisulfate 75 MG TAB PER TUBE SCH (09:23)
[2019-12-25] MEDS: Famotidine/PF 20 mg/2ml Vial SLOW IVP SCH (09:24)
--- NOTE | 2019-12-25 09:33 | PRG ---
DATE OF SERVICE: 12/25/2019 SERVICE: Renal Medicine. SUBJECTIVE: Mr. Baird is a 59-year-old black male, admitted for CVA. He presented with left-sided weakness, dysphagia, and dysarthria. He was seen by the Renal Service due to his acute kidney injury. IV hydration has been given with significant improvement of the renal function. No new complaints today. No chest pain or shortness of breath. OBJECTIVE: VITAL SIGNS: Blood pressure 169/95, heart rate 88, respiratory rate 16, temperature 98.1, pulse ox 93%. GENERAL: The patient is awake, alert, comfortable, not in distress. He is dysarthric/aphasic. HEENT: Pinkish conjunctivae. Anicteric sclerae. NECK: No neck mass. No carotid bruits. No JVD. CHEST: No deformities. LUNGS: Clear breath sounds. No wheezing. No crackles. HEART: Normal sinus rhythm. No murmurs, gallops, or rubs. ABDOMEN: Globular, soft, nontender. No masses. EXTREMITIES: No edema. No deformities. NEUROLOGIC: The patient is dysarthric/aphasic, left-sided weakness. MEDICATIONS: Medications of December 25, 2019, were reviewed. LABORATORY DATA: Laboratories of December 25, 2019; sodium 139, potassium 3.3, chloride 103, carbon dioxide 27, BUN 35, creatinine 2.24, glucose 324, calcium 8.2, phosphorus 2.8, albumin 2.8. ASSESSMENT AND PLAN: 1. Acute kidney injury, much improved renal function from a creatinine 5 to most recent value of 2.24. Continue IV hydration. He has superimposed hemodynamically-mediated renal dysfunction. 2. Status post cerebrovascular accident. Continue supportive care. 3. We will recheck basic metabolic panel and CBC in a.m. Job ID: [id number]
[2019-12-25] MEDS: Levothyroxine 100 MCG SDV SLOW IVP SCH (11:03)
[2019-12-25 13:28] LABS: Anion Gap 10 mmol/L (10-20); BUN (Urea Nitrogen) 29 mg/dL (8.4-25.7); Calc. Creatinine Clearance 47 mL/min (70-130); Calcium 8.3 mg/dL (7.8-10.44); Carbon Dioxide 29 mmol/L (22-29); Chloride 103 mmol/L (98-107); Estimated GFR-MDRD 43; Glucose 256 mg/dL (70-105); Potassium 3.6 mmol/L (3.5-5.1); Sodium 138 mmol/L (136-145)
[2019-12-25] MEDS: Sodium Bicarbonate 75 MEQ in Sodium Chloride 0.45% 1,000 ML IV SCH (16:41)
[2019-12-25] MEDS: Atorvastatin Calcium 40 MG TAB PER TUBE SCH (20:35)
[2019-12-25] MEDS ORDERED: Scopolamine 1.5 mg/72 hour Patch TOP SCH (22:15)
[2019-12-26 05:02] LABS: #Eosinphils 0.4 thou/uL (0.0-0.7); #Lymphocytes 1.1 thou/uL (1.20-3.40); #Monocytes 0.4 thou/uL (0.11-0.59); #Neutrophils 4.4 thou/uL (1.40-6.50); %Basophils 0.3 % (0.0-1.0); %Eosinophils 5.9 % (0.0-10.0); %Lymphocytes 17.3 % (21.0-51.0); %Neutrophils 70.5 % (42.0-75.0); Hemoglobin 11.2 g/dL (14.0-18.0); Mean Platelet Volume 8.5 fL (7.4-10.4); Platelet Count 200 thou/uL (130-400); RBC Distribution Width 12.9 % (11.5-14.5); Red Blood Cell (RBC) Count 3.73 mill/uL (4.70-6.10); White Blood Cell (WBC) Count 6.2 thou/uL (4.8-10.8)
[2019-12-26 05:18] LABS: Albumin 2.7 g/dL (3.5-5.0); Anion Gap 11 mmol/L (10-20); BUN (Urea Nitrogen) 26 mg/dL (8.4-25.7); BUN/Creatinine Ratio 14.77; Calc. Creatinine Clearance 52 mL/min (70-130); Carbon Dioxide 24 mmol/L (22-29); Chloride 102 mmol/L (98-107); Estimated GFR-MDRD 49; Glucose 462 mg/dL (70-105); Potassium 4.1 mmol/L (3.5-5.1); Sodium 133 mmol/L (136-145)
--- NOTE | 2019-12-26 05:34 | PDOC.FM ---
- Subjective Subjective: Patient was sitting up in bed with his present at the time of evaluation. Their only complaint at this time was some moderate coughing during the night, but they denied any fevers, chills, SOB or ABD pain. The patient's stated that they are continuing to evaluate placement options at [facility]. - Objective Vital Signs & Weight: Vital Signs (12 hours) Temp Pulse Resp BP Pulse Ox 12/26/19 04:00 98.6 F 82 18 186/93 H 94 L 12/26/19 00:00 98.2 F 83 16 169/93 H 95 12/25/19 19:40 98 F 88 16 193/101 H 94 L Weight Admit Weight 79.515 kg Weight 79.515 kg I&O: 12/24/19 12/25/19 12/26/19 06:59 06:59 06:59 Intake Total 724 71 0161 Output Total 750 4255 850 Balance -297 -4165 1220 Result Diagrams: 12/26/19 04:36 12/26/19 04:36 Phys Exam - Physical Examination Constitutional: NAD HEENT: moist MMs, sclera anicteric, oral pharynx no lesions Neck: supple, full ROM Respiratory: no wheezing, no rales, no rhonchi, clear to auscultation bilateral Cardiovascular: RRR, no significant murmur, no rub Gastrointestinal: soft, non-tender, no distention, positive bowel sounds Musculoskeletal: no edema, pulses present Continued decreased ROM and strength on left side - stable Skin: no rash Dx/Plan (1) Hypertensive urgency Code(s): I16.0 - HYPERTENSIVE URGENCY Status: Resolved (2) HLD (hyperlipidemia) Code(s): E78.5 - HYPERLIPIDEMIA, UNSPECIFIED Status: Chronic (3) DM2 (diabetes mellitus, type 2) Status: Chronic (4) History of CVA (cerebrovascular accident) Code(s): Z86.73 - PRSNL HX OF TIA (TIA), AND CEREB INFRC W/O RESID DEFICITS Status: Chronic (5) Hypothyroidism Code(s): E03.9 - HYPOTHYROIDISM, UNSPECIFIED Status: Chronic (6) CVA (cerebral vascular accident) Code(s): I63.9 - CEREBRAL INFARCTION, UNSPECIFIED Status: Acute (7) Acute renal failure Status: Acute - Plan Plan: Patient is a 59 y/o male with a PMH significant for multiple CVAs who presents to the ED from an outside hospital following 4 days of worsening dysarthria, right-sided LE weakness and left-sided facial drooping. 1. 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 Acute Left Basal Ganglia Infarct -MRI (Brain): Right Cerebral Peduncle Infarct involving the Corticospinal Tract -TTE: Diastolic Dysfunction (EF: 60-65%) -CTA (Head/Neck): Moderate stenosis of Right Vertebral Artery -Q4H Neuro Checks -Neuro Consult: Medication regimen is optimized, no further intervention required -Keppra: 40.3 (WNL) -Currently holding Aggrenox per Pharm recs 2. Hypertensive Urgency, resolved -Patient is outside window for Permissive Hypertension -Home Amlodipine restarted - still holding home Losartan and HCTZ based on renal function - will reengage w/ Nephro -Hydralazine 10 mg IV Q4H > 160/100 mmHg -Labetalol 10 mg IV > 160/100 mmHg -Reengaged with Nursing staff to ensure better BP control during daily checks 3. Acute Renal Failure, improving -Cr: 1.36 on admission > 6.99 on 12/23 (Peak) > 1.76 on 12/26 -Nephrology: Consulted - likely 2/2 combination of dehydration and Contrast Induced Nephropathy -DC'd LR - currently on NaHCO3 @ 100 ml/hr per, per Nephro -Renal US: WNL 3. DM2 -Started on Lantus 5U daily on 12/22 - increased to 30U daily, will continue to adjust -Humalog 12U INA TID -Aggressive Sliding Scale -Accuchecks Q4H -Hypoglycemia Protocol 4. Hypothyroidism -TSH: 2.25 -Initially held home medication regimen due to failed Modified Barium Swallow -Restarted home Levothyroxine dose via PO/crush 5. HLD -Patient's states that patient is compliant with home medication regimen -FLP: Cholesterol(141) / Tri(120) / HDL(40) / LDL(77) -Restarted home medication regimen via PO/crush 6. Hx of Seizures -No recent seizure activity in several years, per the patient's -Restarted home Keppra regimen via IV due to failed Modified Barium Swallow -Patient is on Bed Rest w/ Bed Alarm in place - waffle mattress and frequent repositioning encouraged PCP: CC Code: Full Diet: NPO Activity: Strict Bed Rest w/ Alarm VTE PPx: SCDs and Lovenox Dispo: Patient is admitted to the Stroke Floor for ongoing evaluation of CVA and Acute Renal Failure. Nephrology currently following - recs appreciated. PEG tube placed successfully w/ Dietary managing nutrition. Waffle mattress w/ frequent repositioning to avoid ulcer formation. Continue DC planning w/ patient 's family and Case Management. Expected LOS > 48H. Addendum - Attending - Attending Attestation Date/Time: 12/26/19 1240 I personally evaluated the patient and discussed the management with Dr. Oneal. I agree with the History, Examination, Assessment and Plan documented above with any addition or exceptions noted below. Likely d/c gtt. Add FW to TF. Adjust meds per GFR. Improve control of BP. Hopeful dc tomorrow or the next day.
[2019-12-26] MEDS: HumaLOG 300 UNITS/3 ML VIAL SC PRN ×2 (06:40→11:41)
--- NOTE | 2019-12-26 09:15 | PRG ---
DATE OF SERVICE: 12/26/2019 SUBJECTIVE: Mr. Baird is a 59-year-old black male with known history of status post CVA and was seen by the Renal Service for his acute kidney injury that was hemodynamically-mediated renal dysfunction. His renal function is slowly improving with IV hydration. No new complaints today. He still is aphasic and he still has that left-sided weakness. No new complaints. OBJECTIVE: VITAL SIGNS: Blood pressure 159/81, heart rate 83, respiratory rate 16, temperature 98.8, and pulse ox 97%. GENERAL: Awake, alert, comfortable, not in distress. SKIN: Adequate turgor. HEENT: Pinkish conjunctivae. Anicteric sclerae. No neck mass. No carotid bruits. No JVD. The patient is aphasic. LUNGS: Clear breath sounds. HEART: Normal sinus rhythm. No murmurs, gallops, or rubs. ABDOMEN: Globular, soft, nontender. No masses. EXTREMITIES: No edema. No deformities. NEUROLOGICAL: The patient is aphasic, but can follow simple commands. Left-sided weakness. MEDICATIONS: Medications of December 26, 2019, was reviewed. LABORATORY DATA: Laboratories of December 26, 2019, showed a white count of 6.2, hemoglobin 11.2. Sodium 133, potassium 4.1, chloride 102, carbon dioxide 24, BUN 26, creatinine 1.76, glucose 462, phosphorus 2.0, calcium is 8.0, albumin 2.7. ASSESSMENT AND PLAN: 1. Status post CVA. Continue supportive care for possible rehab transfer. 2. Acute kidney injury-superimposed hemodynamically-mediated renal dysfunction. Renal function is much improved. 3. Chronic renal failure. The patient most likely has diabetic nephropathy as suggested by the presence of proteinuria and longstanding history of diabetes mellitus. Overall, agree with current management. Job ID: [id number]
[2019-12-26] MEDS ORDERED: Insulin Glargine 40 UNITS in Pre-Filled Syringe 1 EACH SC SCH (09:30)
[2019-12-26] MEDS ORDERED: Carvedilol 6.25 MG TAB PO SCH ×2 (09:31→09:45)
[2019-12-26] MEDS: HumaLOG 300 UNITS/3 ML VIAL SC SCH ×3 (09:49→17:37)
[2019-12-26] MEDS: Enoxaparin Sodium 40 MG/0.4 ML SYRINGE SC SCH (09:51)
[2019-12-26] MEDS: Clopidogrel Bisulfate 75 MG TAB PER TUBE SCH (11:38)
[2019-12-26] MEDS: Levothyroxine Sodium 25 MCG TAB PO SCH (11:38)
[2019-12-26] MEDS: Levothyroxine Sodium 112 MCG TAB PO SCH (11:38)
[2019-12-26] MEDS: Aspirin 81 mg Enteric Coated Tablet PO SCH (11:38)
[2019-12-26] MEDS: Amlodipine 10 MG TAB PER TUBE SCH (11:38)
[2019-12-26] MEDS: Famotidine/PF 20 mg/2ml Vial SLOW IVP SCH (11:40)
[2019-12-26] MEDS: Insulin Glargine 30 UNITS in Pre-Filled Syringe 1 EACH SC SCH (12:32)
[2019-12-26] MEDS: Carvedilol 6.25 MG TAB PO SCH (17:38)
[2019-12-26] MEDS: Atorvastatin Calcium 40 MG TAB PER TUBE SCH (22:13)
--- NOTE | 2019-12-27 05:23 | PDOC.FM ---
- Subjective Subjective: Patient was resting comfortably in bed at the time of evaluation. Per the patient's , there were no acute overnight events except for intermittent coughing. - Objective Vital Signs & Weight: Vital Signs (12 hours) Temp Pulse Resp BP BP Pulse Ox 12/27/19 03:48 98.2 F 76 16 143/86 H 95 12/26/19 23:40 98.6 F 79 16 146/82 H 94 L 12/26/19 20:15 96 12/26/19 19:43 98.6 F 80 16 140/84 93 L 12/26/19 17:38 140/84 Weight Admit Weight 79.515 kg Weight 79.515 kg I&O: 12/25/19 12/26/19 12/27/19 06:59 06:59 06:59 Intake Total 90 3070 2970 Output Total 4255 2450 450 Balance -4165 620 2520 Result Diagrams: 12/27/19 05:52 12/27/19 04:28 Phys Exam - Physical Examination Constitutional: NAD HEENT: PERRLA, moist MMs, sclera anicteric, oral pharynx no lesions EOMI Neck: supple, full ROM Respiratory: no wheezing, no rales, no rhonchi, clear to auscultation bilateral Cardiovascular: RRR, no significant murmur, no rub Gastrointestinal: soft, non-tender, no distention, positive bowel sounds PEG Tube in place Musculoskeletal: no edema, pulses present 4/5 Strength in LUE, 5/5 Strength in LLE See MSK Skin: no rash Dx/Plan (1) Hypertensive urgency Code(s): I16.0 - HYPERTENSIVE URGENCY Status: Resolved (2) HLD (hyperlipidemia) Code(s): E78.5 - HYPERLIPIDEMIA, UNSPECIFIED Status: Chronic (3) DM2 (diabetes mellitus, type 2) Status: Chronic (4) History of CVA (cerebrovascular accident) Code(s): Z86.73 - PRSNL HX OF TIA (TIA), AND CEREB INFRC W/O RESID DEFICITS Status: Chronic (5) Hypothyroidism Code(s): E03.9 - HYPOTHYROIDISM, UNSPECIFIED Status: Chronic (6) CVA (cerebral vascular accident) Code(s): I63.9 - CEREBRAL INFARCTION, UNSPECIFIED Status: Acute (7) Acute renal failure Status: Acute - Plan Plan: Patient is a 59 y/o male with a PMH significant for multiple CVAs who presents to the ED from an outside hospital following 4 days of worsening dysarthria, right-sided LE weakness and left-sided facial drooping. 1. 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 Acute Left Basal Ganglia Infarct -MRI (Brain): Right Cerebral Peduncle Infarct involving the Corticospinal Tract -TTE: Diastolic Dysfunction (EF: 60-65%) -CTA (Head/Neck): Moderate stenosis of Right Vertebral Artery -Q4H Neuro Checks -Neuro Consult: Medication regimen is optimized, no further intervention required -Keppra: 40.3 (WNL) -Currently holding Aggrenox per Pharm recs 2. Hypertensive Urgency, resolved -Patient is outside window for Permissive Hypertension -Home Amlodipine restarted - still holding home Losartan and HCTZ based on renal function -Added Carvedilol 6.25 mg PO BID -Hydralazine 10 mg IV Q4H > 160/100 mmHg -Labetalol 10 mg IV > 160/100 mmHg -Reengaged with Nursing staff to ensure better BP control during daily checks - documented BPs appear to be within acceptable range 3. Acute Renal Failure, improving -Cr: 1.36 on admission > 6.99 on 12/23 (Peak) > 1.76 on 12/26 -Nephrology: Consulted - likely 2/2 combination of dehydration and Contrast Induced Nephropathy -DC'd LR - currently on NaHCO3 @ 100 ml/hr per, per Nephro -Renal US: WNL 3. DM2 -Started on Lantus 5U daily on 12/22 - increased to 40U daily, will continue to adjust -Humalog 12U INA TID -Aggressive Sliding Scale -Accuchecks Q4H -Hypoglycemia Protocol 4. Hypothyroidism -TSH: 2.25 -Initially held home medication regimen due to failed Modified Barium Swallow -Restarted home Levothyroxine dose via PO/crush 5. HLD -Patient's states that patient is compliant with home medication regimen -FLP: Cholesterol(141) / Tri(120) / HDL(40) / LDL(77) -Restarted home medication regimen via PO/crush 6. Hx of Seizures -No recent seizure activity in several years, per the patient's -Restarted home Keppra regimen via IV due to failed Modified Barium Swallow -Patient is on Bed Rest w/ Bed Alarm in place - waffle mattress and frequent repositioning encouraged PCP: CC Code: Full Diet: NPO Activity: Strict Bed Rest w/ Alarm VTE PPx: SCDs and Lovenox Dispo: Patient is currently stable on the Stroke Floor following CVA and Acute Renal Failure. Nephrology and GI have cleared for DC. Case Management and Patient's family have arranged for SNF placement at [facility] [place] - currently awaiting insurance authorization. PEG tube will likely need to remain in place until patient is proven to not be at risk for aspiration by PT/OT. Waffle mattress w/ frequent repositioning to avoid ulcer formation will be kept in place until DC. Expected LOS < 48H. Addendum - Attending - Attending Attestation Date/Time: 12/27/19 6131 I personally evaluated the patient and discussed the management with Dr. Oneal. I agree with the History, Examination, Assessment and Plan documented above with any addition or exceptions noted below. Hopeful d/c today pending insurance and nephro. Check BMP within 1 week.
[2019-12-27 06:15] LABS: Mean Corpuscular HGB CONC 33.3 g/dL (32.0-36.0); Mean Corpuscular Hemoglobin 30.1 pg (27.0-31.0); Mean Corpuscular Volume 90.3 fL (78.0-98.0); Mean Platelet Volume 8.4 fL (7.4-10.4); Platelet Count 221 thou/uL (130-400); RBC Distribution Width 12.9 % (11.5-14.5); Red Blood Cell (RBC) Count 3.64 mill/uL (4.70-6.10); White Blood Cell (WBC) Count 6.6 thou/uL (4.8-10.8)
[2019-12-27] MEDS: Levothyroxine Sodium 25 MCG TAB PO SCH (06:22)
[2019-12-27] MEDS: Levothyroxine Sodium 112 MCG TAB PO SCH (06:23)
[2019-12-27 07:26] LABS: Albumin 2.7 g/dL (3.5-5.0); Anion Gap 9 mmol/L (10-20); BUN (Urea Nitrogen) 30 mg/dL (8.4-25.7); BUN/Creatinine Ratio 18.07; Calc. Creatinine Clearance 55 mL/min (70-130); Calcium 8.2 mg/dL (7.8-10.44); Carbon Dioxide 29 mmol/L (22-29); Chloride 104 mmol/L (98-107); Estimated GFR-MDRD 52; Glucose 190 mg/dL (70-105); Phosphorus 2.5 mg/dL (2.3-4.7); Potassium 3.9 mmol/L (3.5-5.1); Sodium 138 mmol/L (136-145)
[2019-12-27] MEDS ORDERED: Insulin Glargine 40 UNITS in Pre-Filled Syringe 1 EACH SC SCH (09:00)
[2019-12-27] MEDS: HumaLOG 300 UNITS/3 ML VIAL SC SCH ×3 (10:12→17:21)
[2019-12-27] MEDS: Aspirin 81 mg Enteric Coated Tablet PO SCH (10:35)
[2019-12-27] MEDS: Enoxaparin Sodium 40 MG/0.4 ML SYRINGE SC SCH (10:35)
[2019-12-27] MEDS: Carvedilol 6.25 MG TAB PO SCH ×2 (10:35→17:20)
[2019-12-27] MEDS: Clopidogrel Bisulfate 75 MG TAB PER TUBE SCH (10:36)
[2019-12-27] MEDS: Amlodipine 10 MG TAB PER TUBE SCH (10:36)
[2019-12-27] MEDS: Famotidine/PF 20 mg/2ml Vial SLOW IVP SCH (10:37)
[2019-12-27] MEDS: HumaLOG 300 UNITS/3 ML VIAL SC PRN (12:04)
[2019-12-27] MEDS ORDERED: hydrALAZINE 25 MG TAB PER TUBE SCH (15:00)
[2019-12-27 15:56] VITALS: TEMP 99
--- NOTE | 2019-12-27 16:46 | PRG ---
DATE OF SERVICE: 12/27/2019 SERVICE: Nephrology. SUBJECTIVE: A 59-year-old male, admitted due to acute CVA, being followed up for acute renal failure. The patient is still on tube feeding and continue to have dysphagia, dysarthria. No new problem. OBJECTIVE: VITAL SIGNS: Temperature 98.4, pulse 74, respiratory rate 16, SpO2 of 96% on room air, blood pressure is 167/90. GENERAL: Comfortable male, in no distress. Afebrile. Anicteric. Acyanotic. HEENT: Normocephalic and atraumatic. Oral mucosa is moist. CARDIOVASCULAR: Regular rhythm and rate with normal heart sounds one and two. RESPIRATORY: Fair air entry bilaterally with no crackle or rhonchi or use of accessory muscles. GI: Full, soft, nontender, nondistended with normal bowel sounds. PEG tube noted. EXTREMITIES: Grossly normal looking, atraumatic with no edema or erythema. FURRIER DESIGNER: Conscious, alert and oriented x3. The patient is attempting to verbalize, but has severe dysarthria and dysphonia. Left-sided mild hemiparesis noted. DIAGNOSTIC DATA: CBC showed WBC count of 6.6, hemoglobin of 11.0, platelets of 221. Renal function panel showed sodium 138, potassium 3.9, chloride 104, CO2 of 29, BUN 30, creatinine 1.66, glucose 190, calcium 8.2, phosphorus 2.5, albumin 2.7. Note that creatinine has trended downward from peak of 6.99 to 1.66 today. ASSESSMENT: 1. Acute kidney injury: Multifactorial from hemodynamic factors related to volume depletion as well as use of diuretics and lisinopril as well as possible contrast-induced nephropathy. Creatinine is trending downward significantly. Peak creatinine was . 2. Chronic kidney disease stage 3. 3. Hypertension: Control is suboptimal. 4. Acute cerebrovascular accident with severe dysarthria and dysphagia and mild left hemiparesis. PLAN: 1. We will add hydralazine 25 mg t.i.d. to amlodipine to get a better blood pressure control. 2. We will continue to avoid diuretics and RAAS abby. 3. PT/OT to continue. 4. We will recheck renal function test in the morning. 5. Given significant improvement in renal function, the patient can be discharged from Nephrology point of view at this point with close followup with repeat renal function panel. Job ID: [id number]
[2019-12-27 17:24] VITALS: BP 135/77
[2019-12-27] MEDS ORDERED: levETIRAcetam 500 mg/5 ml Oral Solution PER TUBE SCH (21:00)
--- NOTE | 2019-12-28 07:24 | PQF ---
BELINDA CORNEJO OBI, CHIZOBA C [id number] KIKE ROMANO [id number] CLINICAL DOCUMENTATION CLARIFICATION FORM: POST DISCHARGE Addendum to original discharge summary date: ____ Late entry note date: __ DATE:12/28/2019 ATTN: Natalia Glass Obi Please exercise your independent, professional judgment in responding to the clarification form. Clinical indicators are provided on the bottom of this form for your review Please check appropriate box(s) to clarify if the following diagnosis has been ruled in or ruled out: Acute Tubular Necrosis [ ] Ruled in diagnosis [ ] Continue to treat [ ] Resolved [ ] Ruled out diagnosis [ ] Cannot rule out diagnosis [ ] Other diagnosis [ ] Unable to determine In addition, please specify: Present on Admission (POA): [ ] Yes [ ] No [ ] Unable to determine For continuity of documentation, please document condition throughout progress notes and discharge summary. Thank You. CLINICAL INDICATORS - SIGNS / SYMPTOMS / LABS Laboratory Chemistry Creatinine 12/19 1.36, 12/20 1.52, Laboratory Chemistry 12/21 Crea 3.12, BUN 35, GFR 25 Laboratory Chemistry 12/22 Crea 5.09, BUN 55, GFR 14 Nephrology Consult p1 12/21 Dr Ashby Since yesterday, December 21, about 36 hrs after contrast study, the patient was noted to have progressively increasing creatinine to peak of 3.56 necessitating Nephrology consult Nephrology Consult p3 12/21 Dr Ashby Acute kidney injury: Etiology unclear, but seems to be related yo contrast-induced nephropathy and or hemodynamic factors related to volume depletion from poor oral intake in patient taking losartan and hydrochlorothiazide Renal Ultrasound p1 12/23 Impression: Unremarkable bilateral renal ultrasound. No hydronephrosis or perinephric process PN p1 12/23 Dr Ashby Acute renal failure most likely acute tubular necrosis from contrast-induced nephropathy RISK FACTORS Family Medicine H&P p1 12/19 DM2 Family Medicine H&P p1 12/19 Hyperlipidemia Family Medicine H&P p1 12/19 Hypothyroidism Family Medicine H&P p1 12/19 HTN urgency Nephrology Consult p1 12/21 - CKD TREATMENTS Nephrology Consult 12/21 Nik Glass Obi Nephrology Consult p3 12/21 - Ordered Urinalysis as well as Urine Electrolytes per Dr Ashby Nephrology Consult p3 12/21 - Agree with IV fluid therapy, however discontinue LR per Dr Ashby Nephrology Consult p4 12/21 -recheck renal function test per Dr Ashby Nephrology Consult p4 12/21 -Avoid nephrotoxic agents per Dr Ashby Nephrology Consult p4 12/21 -Ordered renal ultrasound per Dr Ashby MAR 12/21 IV Sodium Bicarbonate 75 mEq in Sodium Chloride (This form is maintained as a part of the permanent medical record) 2014 [employer] All Rights Reserved [email or web address]
[2019-12-28] MEDS ORDERED: Famotidine 40 MG/5 ML Oral Suspension PER TUBE SCH (09:00)
--- NOTE | 2019-12-28 11:09 | DIS ---
DATE OF ADMISSION: 12/19/2019 DATE OF DISCHARGE: 12/27/2019 RESIDENT: Padilla Oneal MD. ADMITTING ATTENDING: Ara Mcpherson MD. DISCHARGE ATTENDING: Asad Lim MD. CONSULTATIONS: 1. Dr. Ankur Toney, Neurology. 2. Dr. Natalia Ashby, Nephrology. 3. Dr. Reji Cardoza, Gastroenterology. 4. Dr. Shaw Olivarez, Nephrology. PROCEDURES: 1. CT [facility] of [place] angiogram with contrast demonstrating no evidence of hemodynamically significant stenosis of either internal carotid artery, moderate stenosis of the origin of the right vertebral artery, unremarkable appearing anterior and middle cerebral artery circulations. 2. Chest x-ray demonstrating mild cardiomegaly without evidence of cardiac decompensation. 3. Brain CT scan demonstrating hypodensity within the left basal ganglia compatible with subacute or old lacunar infarct. Recommend further evaluation with MRI. No evidence of intracranial hemorrhage. 4. Brain MRI demonstrating acute right mid brainstem infarction involving the right cerebral peduncle, likely involving the cortical spinal tract. Several old left thalamic lacunar infarctions and wallerian degeneration of the left brainstem related to left thalamic old lacunar infarctions as well as [id number] chronic ischemic changes. 5. Renal ultrasound demonstrating unremarkable bilateral renal ultrasound without evidence of hydronephrosis or perinephric processes. Chest x-ray demonstrating pneumoperitoneum likely explained by the recent PEG tube placed as well as new small patchy airspace densities in the right lung base, nonspecific, likely significant for atelectasis. A PEG tube was placed by Dr. Reji Cardoza, gastroenterology on 12/23/2019. 6. Modified barium swallow was performed on 12/21/2019 that demonstrated an abnormal scan with penetration and aspiration. PRIMARY DIAGNOSIS: Cerebral vascular accident. SECONDARY DIAGNOSES: 1. Acute renal failure, likely secondary to diabetic nephropathy and contrast-induced nephropathy. 2. Hypertensive urgency, resolved. 3. Diabetes type 2. 4. Hyperlipidemia. 5. History of seizures. DISCHARGE MEDICATIONS: 1. Aspirin 81 mg p.o. daily. 2. Keppra oral solution 500 mg per tube b.i.d. DISCONTINUED MEDICATIONS: 1. Tylenol 650 mg [place] q.4 hours. 2. Amlodipine 10 mg daily. 3. Aspirin 81 mg p.o. daily. 4. Atorvastatin 40 mg per tube daily. 5. Carvedilol 6.25 mg p.o. b.i.d. 6. Clopidogrel 75 mg per tube daily. 7. Lovenox 40 mg subcutaneous daily. 8. Famotidine 20 mg per tube daily. 9. Hydralazine 10 mg slow IV push q.4 hours p.r.n. 10. Insulin glargine 40 units subcutaneous daily. 11. Aggressive insulin sliding scale. 12. Insulin human lispro 12 units subcutaneous t.i.d. 13. Keppra 500 mg per tube b.i.d. 14. Levothyroxine 137 mcg p.o. daily. 15. Zofran 4 mg p.o. q.6 hours. HISTORY OF PRESENT ILLNESS/HOSPITAL COURSE: Mr. Baird is a 59-year-old male with past medical history significant for several strokes, most recent of which occurred in 2015, as well as hypertension, history of seizures, hyperlipidemia, and diabetes, who presents to the ED with his from an outside hospital for evaluation of possible cerebrovascular accident. The patient had pronounced dysarthria during the evaluation. Much of the HPI and ROS provided by the patient's who was present upon evaluation. Per the patient's , the patient has residual symptoms of dysarthria and generalized weakness following his most recent cerebrovascular accident in 2015. However, since December 16, 2019, the patient's has noticed an increase in these symptoms to now include pronounced right-sided lower extremity weakness and left-sided facial drooping. The patient and his presented to an outside hospital earlier in the day on 12/19/2019 and were told to come [facility] in [place], [place] to receive an MRI after a CT brain scan was negative. The patient denied any recent seizures, toxic exposure, loss of consciousness, traumatic falls or blows to the head as well as changes in vision, chest pain, shortness of breath, loss of bowel or bladder function. While in the ED the patient received a chest x-ray that demonstrated mild cardiomegaly and was found to have hypertensive urgency with a blood pressure of 198/100. He was subsequently administered aspirin 81 mg, HCTZ 25 mg, amlodipine 10 mg, losartan 100 mg. He was subsequently transferred to the stroke floor where he was evaluated by the Neurology team. Additionally, multiple imaging modalities were performed, which are mentioned elsewhere in this document. The patient's recovery in the hospital was difficult as he never fully regained his ability to articulate speech effectively and remained aphasic for much of his hospitalization. Additionally, the patient's creatinine function was noted to increase greatly following his imaging studies. The results of which are mentioned elsewhere in this document. As such, nephrology was consulted which initiated fluid resuscitation and the avoidance of nephrotoxic drugs. They followed for the duration of his hospitalization. As the patient was aphasic with notable difficulty with swallowing, a PEG tube was placed per gastroenterology in order the patient could receive enteral nutrition and medications. The patient tolerated the procedure well and his blood pressure and blood glucose began to stabilize following continual administration of his previously established medication regimen as well as augmenting his daily insulin requirements. The patient was subsequently prepped for discharge following evaluation by PT/OT, who recommended inpatient rehab therapy in order to attempt to regain previous level of function as well as speech therapy in order to regain previous level of function. Prior to discharge, the patient's vital signs were recorded as temperature 99, pulse 78, blood pressure 135/77, respirations 16, O2 saturations 97% on room air. LABORATORY DATA: Revealed a white blood cell count of 6.6, hemoglobin 11, hematocrit 32.9, platelet count 221. Coagulation panel revealed a PT of 14.5, INR 1.1, APTT 28.2. Chem panel revealed, sodium 138, potassium 3.9, chloride 104, carbon dioxide 29, BUN 30, creatinine 1.66, down from a peak of 6.99, glucose 100, troponin 0.012. Creatine kinase 251, triglycerides 120, cholesterol 141, LDL cholesterol 77, HDL cholesterol 40, procalcitonin 0.98. TSH 2.2541, prolactin 10.75. DISPOSITION: Stable. DISCHARGE INSTRUCTIONS: Location: The patient was subsequently transferred to [facility] [place] [facility]. Diet: Carbohydrate conscious diet administered per PEG tube. Activity: The patient will likely require a formal PT and OT evaluation in order to assess his level of ambulation as such restriction should be placed that the patient is not at a fall risk. Followup: The patient was encouraged to follow up with his primary care provider, either during or after his stay at [facility] [place]. Additionally, the patient was encouraged to follow up with Ankur Toney, neurology as needed as well as Dr. Ashby in 2 to 3 weeks in order to repeat renal function testing. Job ID: [id number] [id number]
== END 2019-12-27 18:40 | DRG 65 ==
LOC: ERS 07:10 → ERHOLD 09:53 → 2SE 12-20 00:47
PROVIDERS: ADMIT Family Medicine; ATTEND Emergency Medicine
PROC: 0DH63UZ Insertion of Feeding Device into Stomach, Percutaneous Approach (ICD-10-PCS; principal; 2019-12-23)
DX: I63.9 Cerebral infarction, unspecified (principal); N17.9 Acute kidney failure, unspecified; G81.94 Hemiplegia, unspecified affecting left nondominant side; N18.3 Chronic kidney disease, stage 3 (moderate); I12.9 Hypertensive chronic kidney disease with stage 1 through stage 4 chronic kidney disease, or unspecified chronic kidney disease; R47.1 Dysarthria and anarthria; E03.9 Hypothyroidism, unspecified; E78.5 Hyperlipidemia, unspecified; R29.706 NIHSS score 6; I16.0 Hypertensive urgency; E11.22 Type 2 diabetes mellitus with diabetic chronic kidney disease; G40.909 Epilepsy, unspecified, not intractable, without status epilepticus; R29.810 Facial weakness; R47.81 Slurred speech; N14.1 Nephropathy induced by other drugs, medicaments and biological substances; T50.8X5A Adverse effect of diagnostic agents, initial encounter; E86.9 Volume depletion, unspecified; R13.12 Dysphagia, oropharyngeal phase; R40.2362 Coma scale, best motor response, obeys commands, at arrival to emergency department; R40.2142 Coma scale, eyes open, spontaneous, at arrival to emergency department; R40.2252 Coma scale, best verbal response, oriented, at arrival to emergency department; E11.649 Type 2 diabetes mellitus with hypoglycemia without coma; Z86.73 Personal history of transient ischemic attack (TIA), and cerebral infarction without residual deficits; Z79.899 Other long term (current) drug therapy; Z79.82 Long term (current) use of aspirin; Z79.02 Long term (current) use of antithrombotics/antiplatelets; Z79.4 Long term (current) use of insulin; Z79.890 Hormone replacement therapy
CPT/HCPCS: 36415; 36416; 70450; 70496; 70498; 70551; 71045; 74230; 76770; 80048; 80053; 80061; 80069; 80177; 81001; 82550; 82570; 84145; 84146; 84156; 84300; 84443; 84484; 84540; 85025; 85027; 85610; 85730; 87040; 87086; 87804; 93005; 93010; 93306; J0360; J0690; J1650; J1815; J1953; J2001; J2704; Q0162; Q9967; S0028

== ENCOUNTER 2024-07-10 06:58 | Day surgery (SDC) | payer OTHER, MEDICAID ==
[2024-07-09 12:17] VITALS: BMI 18.3
[2024-07-10] MEDS ORDERED: PROPOFOL 200 MG/20 ML VIAL ONE (08:52)
[2024-07-10] MEDS ORDERED: Lidocaine 1% PF 5 ML VIAL ONE (08:52)
== END 2024-07-10 10:04 | disposition home or self-care (01) ==
LOC: SDC 06:58
PROVIDERS: ATTEND Internal Medicine Gastroenterology
PROC: 0D758DZ Dilation of Esophagus with Intraluminal Device, Via Natural or Artificial Opening Endoscopic (ICD-10-PCS; principal; 2024-07-10)
PROC: 0DB78ZZ Excision of Stomach, Pylorus, Via Natural or Artificial Opening Endoscopic (ICD-10-PCS; 2024-07-10)
DX: K31.7 Polyp of stomach and duodenum (principal); N40.0 Benign prostatic hyperplasia without lower urinary tract symptoms; R13.12 Dysphagia, oropharyngeal phase; E11.9 Type 2 diabetes mellitus without complications; I25.10 Atherosclerotic heart disease of native coronary artery without angina pectoris; E03.9 Hypothyroidism, unspecified; G40.909 Epilepsy, unspecified, not intractable, without status epilepticus; Z79.899 Other long term (current) drug therapy; Z79.890 Hormone replacement therapy; Z79.4 Long term (current) use of insulin; Z98.890 Other specified postprocedural states; Z79.02 Long term (current) use of antithrombotics/antiplatelets
CPT/HCPCS: 43248; 43251; J2704; 88305; 88342